=== PATIENT | female | born 1950 | race Caucasian/White ===

== ENCOUNTER → 2016-12-01 | Outpatient (CLI) | payer BC ==
[~2016-12-01] MED LIST: AMOX500C3 PO; CLOTLOT2 TOP; DOCU100C; FOLI1TAB7 PO; LEVO150T22 PO; LEVO150T9 PO; METH2.5T PO; NAPR1TAB9 PO; PRD/1 PO; SENNTAB23 PO; SIMV20TA2 PO
--- NOTE | 2016-12-01 10:11 | DIAGNOSTIC IMAGING REPORT ---
ULTRASOUND RIGHT UPPER EXTREMITY VENOUS CLINICAL HISTORY: Right arm pain and swelling. COMPARISON STUDY: No priors. TECHNIQUE: Real-time, grayscale, and color Doppler sonography of the deep veins of the right upper extremity is performed. Compression and augmentation were utilized. FINDINGS: There is no sonographic evidence of deep venous thrombosis identified in the right upper extremity. The right internal jugular, axillary, and brachial veins are patent and normally compressible. Normal venous waveforms and augmentation are seen within the right subclavian vein. The cephalic and basilic veins are clear. The visualized radial and ulnar veins are patent. IMPRESSION: There is no sonographic evidence of deep venous thrombosis identified in the right upper extremity. Electronically signed by: Shabbir Ribeiro M.D. 12/01/2016 10:10 AM Dictated Date/Time: 12/01/2016 10:09 AM
== END | disposition home or self-care (01) ==
LOC: C.ULTR 09:39
PROVIDERS: ATTEND Internal Medicine
DX: M79.601 Pain in right arm (principal)

== ENCOUNTER → 2017-01-23 | Outpatient (CLI) | payer BC ==
[2017-01-23 12:34] LABS: BASO % 0.4 %; BASO ABS # 0.05 K/uL (0-0.2); COMPLETE YES; EOS % 1.2 %; HEMATOCRIT 43.3 % (37-47); IG% 1.3 %; LYMPH % 32.6 %; LYMPH ABS # 3.77 K/uL (1.2-3.4); MEAN CELL VOLUME 91.2 fL (80-100); MEAN CORPUSCULAR HEMOGLOBIN 29.9 pg (25-34); MEAN CORPUSCULAR HGB CONC 32.8 g/dl (32-36); MEAN PLATELET VOLUME 10.4 fL (7.4-10.4); MONO % 8.7 %; NEUT % 55.8 %; PLATELET COUNT 314 K/uL (130-400); RED BLOOD COUNT 4.75 M/uL (4.2-5.4); WHITE BLOOD COUNT 11.56 K/uL (4.8-10.8)
[2017-01-23 13:04] LABS: CALCIUM 9.3 mg/dl (8.5-10.1)
[2017-01-23 13:09] LABS: ALT/SGPT 22 U/L (12-78); AST/SGOT 12 U/L (15-37); BLOOD UREA NITROGEN 21 mg/dl (7-18); BUN/CREATININE RATIO 27.2 (10-20); CARBON DIOXIDE 24 mmol/L (21-32); CHLORIDE 103 mmol/L (98-107); CHOLESTEROL 135 mg/dl (0-200); CREATININE 0.76 mg/dl (0.60-1.20); GLUCOSE 108 mg/dl (70-99); POTASSIUM 3.9 mmol/L (3.5-5.1); SODIUM 137 mmol/L (136-145); TRIGLYCERIDES 94 mg/dl (0-150); VERY LOW DENSITY LIPOPROT CALC 19 mg/dl
[2017-01-23 13:17] LABS: ALB/GLOB RATIO 1.2 (0.9-2); ALKALINE PHOSPHATASE 61 U/L (45-117); CHOLESTEROL/HDL RATIO 2.1; HDL CHOLESTEROL 64 mg/dl; THYROID STIMULATING HORMONE 0.253 uIu/ml (0.300-4.500)
== END | disposition home or self-care (01) ==
LOC: C.LABSPEC 12:08
PROVIDERS: ATTEND Internal Medicine
DX: E78.5 Hyperlipidemia, unspecified (principal); Z85.3 Personal history of malignant neoplasm of breast; E03.9 Hypothyroidism, unspecified

== ENCOUNTER → 2017-01-24 | Outpatient (CLI) | payer BC | END | disposition home or self-care (01) | LOC: C.LABSPEC 17:50 | PROVIDERS: ATTEND Internal Medicine | DX: Z12.11 Encounter for screening for malignant neoplasm of colon (principal) ==

== ENCOUNTER → 2017-01-27 | Outpatient (CLI) | payer BC ==
--- NOTE | 2017-01-27 08:27 | DIAGNOSTIC IMAGING REPORT ---
(BARIUM SWALLOW) ESOPHAGUS CLINICAL HISTORY: DYSPHAGIAcoughing while eating. Possible aspiration. COMPARISON STUDY: None FLUOROSCOPY TIME: 1.7 minutes. 25 fluoroscopic spot images were acquired.. FINDINGS: The patient swallowed effervescent granules and barium without difficulty. There is no evidence of aspiration. There is a small sliding hiatal hernia. There is esophageal dysmotility. There is a 4.3 cm smoothly marginated filling defect within the esophagus at the level of the jonna. The acute margins favor this being intrinsic to the esophagus. A polyp or submucosal mass is favored. Gastroenterology consultation is recommended in follow-up. IMPRESSION: 4.3 cm smoothly marginated filling defect within the esophagus at the level of the jonna. An intrinsic mass is favored over an extrinsic defect. A polyp or submucosal mass is favored. Gastroenterology consultation is recommended in follow-up. Electronically signed by: Crow Velasco M.D. 01/27/2017 8:38 AM Dictated Date/Time: 01/27/2017 8:21 AM
== END | disposition home or self-care (01) ==
LOC: C.RAD 07:51
PROVIDERS: ATTEND Internal Medicine
DX: R13.10 Dysphagia, unspecified (principal)

== ENCOUNTER → 2017-02-13 | Day surgery (SDC) | payer BC ==
[2017-01-30 08:26] VITALS: Ht 162.6 cm; Wt 84.1 kg
[~2017-02-13] VITALS: Ht 162.6 cm; Wt 84.1 kg
[~2017-02-13] MED LIST changes: -DOCU100C; -LEVO150T22 PO; +LIDOCAINE HCL 2% 2 ML VIAL (20MG/ML) ONE; -PRD/1 PO; +PROPOFOL IV EMULSION 10 MG/ML 20 ML VIAL IV ONE
--- NOTE | 2017-02-13 14:54 | Endo History and Physical ---
History & Physical Date of Service: February 13, 2017. Chief Complaint: mass seen on Barium swallow Referring Physician: Dr. Alejandra History of Present Illness For EGD Past Medical History Arthritis, Cancer, High Cholesterol, Thyroid Disease Past Surgical History Hx Cardiac Surgery: No Hx Internal Defibrillator: No Hx Pacemaker: No Hx Abdominal Surgery: Yes (GARRET BSO) Hx of Implantable Prosthesis: No Hx Post-Op Nausea and Vomiting: No Hx Cancer Surgery: Yes (RT BREAST LUMPECTOMY X2 WITH LYMPH NODES DISSECTION) Hx Thoracic Surgery: No Hx Orthopedic: Yes (CYST REMOVAL FROM LEFT INDEX FINGER (MRSA), RT WRIST GANGLION CYST REMOVAL) Hx Urinary Tract Surgery: No Family History IBD Social History Smoking Status: Never Smoker Hx Substance Use: No Hx Alcohol Use: No Allergies Coded Allergies: Adhesives (Verified Allergy, Unknown, SKIN IRRITATION, 02/13/17) Metronidazole (Verified Adverse Reaction, Unknown, EXTREME METALLIC TASTE IN MOUTH, 01/30/17) Current Medications Reported Home Medications Medications Dose Route/Sig Max Daily Dose Days Date Category Dose Instructions Amoxil (Amoxicillin) 500 Mg Cap 4 Tabs PO UD PRN 01/30/17 Reported Clotrimazole/Betamethason (Clotrimazole W/ Betamethasone) 1 Lot Lot 1 Dose TOP UD PRN 01/30/17 Reported Aleve (Naproxen) 220 Mg Tab 220 Mg PO DAILY PRN 01/30/17 Reported Levothyroxine Sodium 150 Mcg Tab 1 Tab PO QAM 01/30/17 Reported Methotrexate 2.5 Mg Tab 6 Tabs PO WK 09/16/16 Reported THURSDAY Folvite (Folic Acid) 1 Mg Tab 1 Tab PO QAM 09/16/16 Reported Zocor (Simvastatin) 20 Mg Tab 20 Mg PO HS 08/01/10 Reported Vital Signs Weight (Kilograms): 84.09 Height (Feet): 5 Height (Inches): 4 Date Time Temp Pulse Resp B/P Pulse Ox O2 Delivery O2 Flow Rate FiO2 02/13/17 14:26 36.9 74 20 199/78 98 Room Air 182/98 Physical Exam General Appearance: WD/WN Respiratory/Chest: Respiratory effort: no dyspnea Cardiovascular: Heart Auscultation: RRR Abdomen: Inspection & Palpation: soft Assessment and Plan Abnl xray for EGD
--- NOTE | 2017-02-13 15:51 | Discharge Instructions ---
Endoscopy Patient Instructions Date / Procedure(s) Performed February 13, 2017. EGD Allergy Information Coded Allergies: Adhesives (Verified Allergy, Unknown, SKIN IRRITATION, 02/13/17) Metronidazole (Verified Adverse Reaction, Unknown, EXTREME METALLIC TASTE IN MOUTH, 01/30/17) Discharge Date / Findings February 13, 2017. Esophageal mass, esophagitis, hiatal hernia Medication Instructions Restart Stopped Medication(s): resume meds Reported Home Medications Medications Dose Route/Sig Max Daily Dose Days Date Category Dose Instructions Amoxil (Amoxicillin) 500 Mg Cap 4 Tabs PO UD PRN 01/30/17 Reported Clotrimazole/Betamethason (Clotrimazole W/ Betamethasone) 1 Lot Lot 1 Dose TOP UD PRN 01/30/17 Reported Aleve (Naproxen) 220 Mg Tab 220 Mg PO DAILY PRN 01/30/17 Reported Levothyroxine Sodium 150 Mcg Tab 1 Tab PO QAM 01/30/17 Reported Methotrexate 2.5 Mg Tab 6 Tabs PO WK 09/16/16 Reported THURSDAY Folvite (Folic Acid) 1 Mg Tab 1 Tab PO QAM 09/16/16 Reported Zocor (Simvastatin) 20 Mg Tab 20 Mg PO HS 08/01/10 Reported Provider Instructions Activity Restrictions - No exercising or heavy lifting for 24 hours. - Do not drink alcohol the day of the procedure. - Do not drive a car or operate machinery until the day after the procedure. - Do not make any important decisions or sign important papers in 24 hours after the procedure. Following Day: - Return to full activity which may include returning to work/school. Diet Start your diet with liquids and light foods (jello, soup, juice, toast). Then eat your usual diet if not nauseated. Treatment For Common After Affects For mild abdominal pain, bloating, or excessive gas: - Rest - Eat lightly - Lie on right side Follow-Up Information Follow-up with Dr. Alejandra as scheduled Anesthesia Information What You Should Know You have had a procedure that required some medicine to reduce anxiety and discomfort. This treatment is called moderate sedation. After receiving the treatment, you may be sleepy, but you will be able to breathe on your own. The effects of the treatment may last for several hours. Follow these instructions along with Activity/Diet recommendations noted above: * Do NOT do anything where dizziness or clumsiness would be dangerous. * Rest quietly at home today, then you can be up and about tomorrow. * Have a responsible person stay with you the rest of today. * You may have had an I.V. today. If so, you may take the dressing off later today. Recommendations Call your doctor if: * Trouble breathing * Continuous vomiting for more than 24 hours * Temperature above 101 degrees * Severe abdominal pain or bloating * Pain not relieved by pain medicine ordered * There is increased drainage or redness from any incision * A large amount of rectal bleeding greater than 2-3 tablespoons. (If you had a polyp/s removed or have hemorrhoids, a small amount of blood - from the rectum is to be expected.) * You have any unanswered questions or concerns. IN THE EVENT OF A SERIOUS EMERGENCY, GO TO THE NEAREST EMERGENCY ROOM Your discharge instructions were prepared by provider Thomas So. Patient Instructions Signature Page Sincere Baron Patient (or Guardian) Signature/Date: I have read and understand the instructions given to me by my caregivers. Caregiver/RN/Doctor Signature/Date: The above-named patient and/or guardian has received patient instructions on this date. + Original Patient Signature Page (only) stays with chart. Please make copy for patient.
--- NOTE | 2017-02-13 15:57 | GI REPORT ---
Procedure Date: 02/13/2017 3:03 PM Procedure: Upper GI endoscopy Indications: Abnormal UGI series Medicines: Propofol total dose 270 mg IV, Lidocaine 40 mg IV Complications: No immediate complications. Estimated Blood Loss: Estimated blood loss: none. Procedure: Pre-Anesthesia Assessment: - Prior to the procedure, a History and Physical was performed, and patient medications, allergies and sensitivities were reviewed. The patient's tolerance of previous anesthesia was reviewed. - The risks and benefits of the procedure and the sedation options and risks were discussed with the patient. All questions were answered and informed consent was obtained. After obtaining informed consent, the endoscope was passed under direct vision. Throughout the procedure, the patient's blood pressure, pulse, and oxygen saturations were monitored continuously. The scope was introduced through the mouth, and advanced to the second part of duodenum. The upper GI endoscopy was accomplished without difficulty. The patient tolerated the procedure well. Findings: LA Grade B (one or more mucosal breaks greater than 5 mm, not extending between the tops of two mucosal folds) esophagitis was found. A small hiatus hernia was present. A large, submucosal mass with no bleeding and with no stigmata of recent bleeding was found in the middle third of the esophagus. The mass was partially obstructing and not circumferential. The entire examined stomach was normal. The examined duodenum was normal. Impression: - LA Grade B reflux esophagitis. - Small hiatus hernia. 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 - Normal stomach. - Normal examined duodenum. - No specimens collected. Recommendation: - Discharge patient to home (ambulatory). - Use Prilosec (omeprazole) 20 mg PO daily for 2 months. - Perform an upper endoscopic ultrasound (UEUS) at appointment to be scheduled. - Return to primary care physician SHAUNN. Thomas So M.D. Thomas So MD 02/13/2017 3:56:18 PM This report has been signed electronically. Note Initiated On: 02/13/2017 3:03 PM I attest to the content of the Intraoperative Record and orders documented therein, exceptions below
--- NOTE | 2017-02-13 16:13 | Anesthesiology Progress Note ---
Anesthesia Post Op Note Date & Time February 13, 2017 at 16:14 Vital Signs Pain Intensity: 0 Vital Signs Past 12 Hours Date Time Temp Pulse Resp B/P Pulse Ox O2 Delivery O2 Flow Rate FiO2 02/13/17 16:03 85 20 161/69 99 Room Air 02/13/17 14:26 36.9 74 20 199/78 98 Room Air 182/98 Notes Mental Status: alert / awake / arousable, participated in evaluation Pt Amnestic to Procedure: Yes Nausea / Vomiting: adequately controlled Pain: adequately controlled Airway Patency, RR, SpO2: stable & adequate BP & HR: stable & adequate Hydration State: stable & adequate Anesthetic Complications: no major complications apparent
[2017-02-13 16:31] VITALS: BP 172/80; PULSE 72; O2SAT 98
== END | disposition home or self-care (01) ==
LOC: C.GI 14:03
PROVIDERS: ATTEND Internal Medicine Gastroenterology
DX: K21.0 Gastro-esophageal reflux disease with esophagitis (principal); K44.9 Diaphragmatic hernia without obstruction or gangrene; K22.8 Other specified diseases of esophagus; E78.00 Pure hypercholesterolemia, unspecified; E07.9 Disorder of thyroid, unspecified; M19.90 Unspecified osteoarthritis, unspecified site; Z85.3 Personal history of malignant neoplasm of breast; Z83.79 Family history of other diseases of the digestive system; Z79.899 Other long term (current) drug therapy

== ENCOUNTER → 2017-02-19 | Outpatient (CLI) | payer BC ==
[~2017-02-19] MED LIST changes: -LIDOCAINE HCL 2% 2 ML VIAL (20MG/ML) ONE; +OPTIRAY 320 IV PRN; -PROPOFOL IV EMULSION 10 MG/ML 20 ML VIAL IV ONE
--- NOTE | 2017-02-19 08:51 | DIAGNOSTIC IMAGING REPORT ---
CHEST CT WITH CONTRAST CT DOSE: 477.01 mGycm HISTORY: MID ESOPHAGEAL TUMOR TECHNIQUE: Multiaxial CT images of the chest were performed following the intravenous administration of contrast. COMPARISON: Barium swallow 01/27/2017. FINDINGS: There is confirmation of 1.7 cm mass seen within the mid esophagus. This is just above the level of the jonna. There is no evidence for obstruction. No hilar lymphadenopathy. Distal paraesophageal lymph nodes are subcentimeter in size. There is a single prominent AP window lymph node measuring 2.0 x 0.8 cm. Normal caliber thoracic aorta. Tiny hiatus hernia. The heart is normal in size. The central pulmonary arteries are patent. No hepatic or splenic masses. No suspicious lytic or blastic osseous lesions. No pneumothorax. No pleural effusions. No suspicious pulmonary nodules. The lungs appear clear. IMPRESSION: 1. Confirmation of the 1.7 cm mass within the mid esophagus. Endoscopy is recommended for further evaluation. 2. A single mildly enlarged AP window lymph node measuring 2.0 x 0.8 cm. 3. Tiny hiatus hernia. Electronically signed by: Pratik Preciado M.D. 02/19/2017 8:50 AM Dictated Date/Time: 02/19/2017 8:36 AM
== END | disposition home or self-care (01) ==
LOC: C.CTS 07:30
PROVIDERS: ATTEND Internal Medicine Gastroenterology
DX: D37.8 Neoplasm of uncertain behavior of other specified digestive organs (principal)

== ENCOUNTER 2017-02-20 11:36 | Day surgery (SDC) | payer BC ==
[2017-02-18 15:08] VITALS: BMI 31.0
[~2017-02-20] VITALS: Ht 162.6 cm; Wt 81.8 kg
[~2017-02-20 11:36] MED LIST changes: +LACTATED RINGER'S 1000ML 1,000 ML IV SCH; -OPTIRAY 320 IV PRN
[2017-02-20 12:12] VITALS: BP 199/78; PULSE 79; TEMP 36.9; O2SAT 94; Ht 162.6 cm; Wt 81.8 kg
[2017-02-20] MEDS ORDERED: ATROPINE SULFATE 0.1 MG/ML 5ML SYR IV PRN (13:00)
[2017-02-20] MEDS ORDERED: FENTANYL CITRATE INJ 50 MCG/1 ML 2 ML VIAL IV PRN (13:00)
[2017-02-20] MEDS ORDERED: ONDANSETRON INJ 2 MG/ML 2 ML VIAL IV PRN (13:00)
[2017-02-20] MEDS ORDERED: SODIUM CHLORIDE 0.9% 500ML 500 ML IV ONE (13:21)
[2017-02-20] MEDS ORDERED: DEXAMETHASONE SOD INJ 4 MG/ML VIAL ONE ×2 (13:22→13:51)
[2017-02-20] MEDS ORDERED: ONDANSETRON INJ 2 MG/ML 2 ML VIAL ONE (13:22)
[2017-02-20] MEDS ORDERED: PROPOFOL IV EMULSION 10 MG/ML 20 ML VIAL IV ONE (13:22)
[2017-02-20] MEDS ORDERED: MIDAZOLAM HCL 1 MG/ML 2ML VIAL ONE (13:22)
[2017-02-20] MEDS ORDERED: LIDOCAINE HCL 2% 2 ML VIAL (20MG/ML) ONE (13:22)
[2017-02-20] MEDS ORDERED: ROCURONIUM BROMIDE 10 MG/ML 5 ML VIAL ONE (13:22)
[2017-02-20] MEDS ORDERED: FENTANYL CITRATE INJ 50 MCG/1 ML 2 ML VIAL ONE (13:23)
--- NOTE | 2017-02-20 13:24 | Endo History and Physical ---
History & Physical Date of Service: February 20, 2017. Chief Complaint: submucosal mass on EGD/BA swallow and CT scan Referring Physician: Past Medical History Arthritis, Cancer, High Cholesterol, Thyroid Disease Past Surgical History Hx Cardiac Surgery: No Hx Internal Defibrillator: No Hx Pacemaker: No Hx Abdominal Surgery: Yes (GARRET BSO) Hx Post-Op Nausea and Vomiting: No Hx Cancer Surgery: Yes (RT BREAST LUMPECTOMY X2 WITH LYMPH NODES DISSECTION) Hx Thoracic Surgery: No Hx Orthopedic: Yes (CYST REMOVAL FROM LEFT INDEX FINGER (MRSA), RT WRIST GANGLION CYST REMOVAL) Hx Urinary Tract Surgery: No Social History Smoking Status: Never Smoker Hx Substance Use: No Hx Alcohol Use: Yes (1 A WEEK) Allergies Coded Allergies: Adhesives (Verified Allergy, Unknown, SKIN IRRITATION, 02/20/17) Metronidazole (Verified Adverse Reaction, Unknown, EXTREME METALLIC TASTE IN MOUTH, 02/20/17) Current Medications Reported Home Medications Medications Dose Route/Sig Max Daily Dose Days Date Category Dose Instructions Stool Softener (Sennosides-Docusate Sodium) 1 Tab Tab 1 Tab PO PRN 02/18/17 Reported Amoxil (Amoxicillin) 500 Mg Cap 4 Tabs PO UD PRN 01/30/17 Reported Clotrimazole/Betamethason (Clotrimazole W/ Betamethasone) 1 Lot Lot 1 Dose TOP UD PRN 01/30/17 Reported Aleve (Naproxen) 220 Mg Tab 220 Mg PO DAILY PRN 01/30/17 Reported Levothyroxine Sodium 150 Mcg Tab 1 Tab PO QAM 01/30/17 Reported Methotrexate 2.5 Mg Tab 6 Tabs PO WK 09/16/16 Reported THURSDAY pm Folvite (Folic Acid) 1 Mg Tab 1 Tab PO QAM 09/16/16 Reported Zocor (Simvastatin) 20 Mg Tab 20 Mg PO HS 08/01/10 Reported Vital Signs Weight (Kilograms): 81.82 Height (Feet): 5 Height (Inches): 4 Date Time Temp Pulse Resp B/P Pulse Ox O2 Delivery O2 Flow Rate FiO2 02/20/17 12:12 36.9 79 20 199/78 94 Room Air Physical Exam AAO x3 Nl s1s2 Lungs CTA Abd soft NT/ND + BS - CCE Assessment and Plan EUS/possible FNA
[2017-02-20] MEDS ORDERED: LABETALOL HCL IV 5 MG/ML 20ML IV ONE (14:11)
[2017-02-20] MEDS ORDERED: CIPROFLOXACIN 400MG / 200ML D5W ONE (14:17)
[2017-02-20] MEDS ORDERED: NEOSTIGMINE METHYLSULFATE 5 MG/5 ML SYR ONE (15:35)
[2017-02-20] MEDS ORDERED: GLYCOPYRROLATE INJ 0.2 MG/ML VIAL ONE (15:35)
[2017-02-20] MEDS ORDERED: ESMOLOL HCL 10 MG/ML 10 ML VIAL ONE (15:35)
--- NOTE | 2017-02-20 16:01 | Discharge Instructions ---
Endoscopy Patient Instructions Date / Procedure(s) Performed February 20, 2017. Allergy Information Coded Allergies: Adhesives (Verified Allergy, Unknown, SKIN IRRITATION, 02/20/17) Metronidazole (Verified Adverse Reaction, Unknown, EXTREME METALLIC TASTE IN MOUTH, 02/20/17) Discharge Date / Findings February 20, 2017. Reported Home Medications Medications Dose Route/Sig Max Daily Dose Days Date Category Dose Instructions Stool Softener (Sennosides-Docusate Sodium) 1 Tab Tab 1 Tab PO PRN 02/18/17 Reported Amoxil (Amoxicillin) 500 Mg Cap 4 Tabs PO UD PRN 01/30/17 Reported Clotrimazole/Betamethason (Clotrimazole W/ Betamethasone) 1 Lot Lot 1 Dose TOP UD PRN 01/30/17 Reported Aleve (Naproxen) 220 Mg Tab 220 Mg PO DAILY PRN 01/30/17 Reported Levothyroxine Sodium 150 Mcg Tab 1 Tab PO QAM 01/30/17 Reported Methotrexate 2.5 Mg Tab 6 Tabs PO WK 09/16/16 Reported THURSDAY pm Folvite (Folic Acid) 1 Mg Tab 1 Tab PO QAM 09/16/16 Reported Zocor (Simvastatin) 20 Mg Tab 20 Mg PO HS 08/01/10 Reported esophgaeal lesion at 25-[address] at 28 cm sampled Medication Instructions Restart Stopped Medication(s): Reported Home Medications Medications Dose Route/Sig Max Daily Dose Days Date Category Dose Instructions Stool Softener (Sennosides-Docusate Sodium) 1 Tab Tab 1 Tab PO PRN 02/18/17 Reported Amoxil (Amoxicillin) 500 Mg Cap 4 Tabs PO UD PRN 01/30/17 Reported Clotrimazole/Betamethason (Clotrimazole W/ Betamethasone) 1 Lot Lot 1 Dose TOP UD PRN 01/30/17 Reported Aleve (Naproxen) 220 Mg Tab 220 Mg PO DAILY PRN 01/30/17 Reported Levothyroxine Sodium 150 Mcg Tab 1 Tab PO QAM 01/30/17 Reported Methotrexate 2.5 Mg Tab 6 Tabs PO WK 09/16/16 Reported THURSDAY pm Folvite (Folic Acid) 1 Mg Tab 1 Tab PO QAM 09/16/16 Reported Zocor (Simvastatin) 20 Mg Tab 20 Mg PO HS 08/01/10 Reported Reported Home Medications Medications Dose Route/Sig Max Daily Dose Days Date Category Dose Instructions Stool Softener (Sennosides-Docusate Sodium) 1 Tab Tab 1 Tab PO PRN 02/18/17 Reported Amoxil (Amoxicillin) 500 Mg Cap 4 Tabs PO UD PRN 01/30/17 Reported Clotrimazole/Betamethason (Clotrimazole W/ Betamethasone) 1 Lot Lot 1 Dose TOP UD PRN 01/30/17 Reported Aleve (Naproxen) 220 Mg Tab 220 Mg PO DAILY PRN 01/30/17 Reported Levothyroxine Sodium 150 Mcg Tab 1 Tab PO QAM 01/30/17 Reported Methotrexate 2.5 Mg Tab 6 Tabs PO WK 09/16/16 Reported THURSDAY pm Folvite (Folic Acid) 1 Mg Tab 1 Tab PO QAM 09/16/16 Reported Zocor (Simvastatin) 20 Mg Tab 20 Mg PO HS 08/01/10 Reported Reported Home Medications Medications Dose Route/Sig Max Daily Dose Days Date Category Dose Instructions Stool Softener (Sennosides-Docusate Sodium) 1 Tab Tab 1 Tab PO PRN 02/18/17 Reported Amoxil (Amoxicillin) 500 Mg Cap 4 Tabs PO UD PRN 01/30/17 Reported Clotrimazole/Betamethason (Clotrimazole W/ Betamethasone) 1 Lot Lot 1 Dose TOP UD PRN 01/30/17 Reported Aleve (Naproxen) 220 Mg Tab 220 Mg PO DAILY PRN 01/30/17 Reported Levothyroxine Sodium 150 Mcg Tab 1 Tab PO QAM 01/30/17 Reported Methotrexate 2.5 Mg Tab 6 Tabs PO WK 09/16/16 Reported THURSDAY pm Folvite (Folic Acid) 1 Mg Tab 1 Tab PO QAM 09/16/16 Reported Zocor (Simvastatin) 20 Mg Tab 20 Mg PO HS 08/01/10 Reported Cipro 500mg twice daily for 7 days until finished Provider Instructions Activity Restrictions - No exercising or heavy lifting for 24 hours. - Do not drink alcohol the day of the procedure. - Do not drive a car or operate machinery until the day after the procedure. - Do not make any important decisions or sign important papers in 24 hours after the procedure. Following Day: - Return to full activity which may include returning to work/school. Diet Start your diet with liquids and light foods (jello, soup, juice, toast). Then eat your usual diet if not nauseated. Treatment For Common After Affects For mild abdominal pain, bloating, or excessive gas: - Rest - Eat lightly - Lie on right side Follow-Up Information Follow-up with as scheduled Anesthesia Information What You Should Know You have had a procedure that required some medicine to reduce anxiety and discomfort. This treatment is called moderate sedation. After receiving the treatment, you may be sleepy, but you will be able to breathe on your own. The effects of the treatment may last for several hours. Follow these instructions along with Activity/Diet recommendations noted above: * Do NOT do anything where dizziness or clumsiness would be dangerous. * Rest quietly at home today, then you can be up and about tomorrow. * Have a responsible person stay with you the rest of today. * You may have had an I.V. today. If so, you may take the dressing off later today. Recommendations Call your doctor if: * Trouble breathing * Continuous vomiting for more than 24 hours * Temperature above 101 degrees * Severe abdominal pain or bloating * Pain not relieved by pain medicine ordered * There is increased drainage or redness from any incision * A large amount of rectal bleeding greater than 2-3 tablespoons. (If you had a polyp/s removed or have hemorrhoids, a small amount of blood - from the rectum is to be expected.) * You have any unanswered questions or concerns. IN THE EVENT OF A SERIOUS EMERGENCY, GO TO THE NEAREST EMERGENCY ROOM Your discharge instructions were prepared by provider Manav Gómez. Patient Instructions Signature Page Sincere Baron Patient (or Guardian) Signature/Date: I have read and understand the instructions given to me by my caregivers. Caregiver/RN/Doctor Signature/Date: The above-named patient and/or guardian has received patient instructions on this date. + Original Patient Signature Page (only) stays with chart. Please make copy for patient.
--- NOTE | 2017-02-20 16:28 | Anesthesiology Progress Note ---
Anesthesia Post Op Note Date & Time February 20, 2017 at 16:28 Vital Signs Pain Intensity: 0 Vital Signs Past 12 Hours Date Time Temp Pulse Resp B/P Pulse Ox O2 Delivery O2 Flow Rate FiO2 02/20/17 16:20 78 18 147/62 97 Room Air 02/20/17 16:10 81 18 142/71 98 Room Air 02/20/17 16:00 84 18 126/93 98 Mask 10 02/20/17 15:54 36.2 94 18 152/64 99 Mask 10 02/20/17 12:12 36.9 79 20 199/78 94 Room Air Notes Mental Status: alert / awake / arousable, participated in evaluation Pt Amnestic to Procedure: Yes Nausea / Vomiting: adequately controlled Pain: adequately controlled Airway Patency, RR, SpO2: stable & adequate BP & HR: stable & adequate Hydration State: stable & adequate Anesthetic Complications: no major complications apparent
[2017-02-20 16:30] VITALS: PULSE 72
[2017-02-20 16:40] VITALS: BP 143/64; TEMP 36.5; O2SAT 96
--- NOTE | 2017-02-20 16:47 | GI REPORT ---
Procedure Date: 02/20/2017 1:58 PM Procedure: Upper EUS Indications: Adenopathy seen on chest CT, Suspected mass in esophagus on chest CT, Abnormal esophagram/UGI series, Hx Breast CA ; lumpectomy/CTX/XRT Medicines: General Anesthesia, Cipro 400 mg IV Complications: No immediate complications. Estimated blood loss: Minimal. Estimated Blood Loss: Estimated blood loss was minimal. Estimated blood loss was minimal. Procedure: Pre-Anesthesia Assessment: - Prior to the procedure, a History and Physical was performed, and patient medications and allergies were reviewed. The patient's tolerance of previous anesthesia was also reviewed. The risks and benefits of the procedure and the sedation options and risks were discussed with the patient. All questions were answered, and informed consent was obtained. Prior Anticoagulants: The patient has taken no previous anticoagulant or antiplatelet agents. ASA Grade Assessment: II - A patient with mild systemic disease. After reviewing the risks and benefits, the patient was deemed in satisfactory condition to undergo the procedure. After obtaining informed consent, the endoscope was passed under direct vision. Throughout the procedure, the patient's blood pressure, pulse, and oxygen saturations were monitored continuously. The Endosonoscope was introduced through the mouth, and advanced to the second part of duodenum. The upper EUS was accomplished without difficulty. The patient tolerated the procedure well. Findings: Endoscopic Finding : The lower third of the esophagus, lower esophageal sphincter and gastroesophageal junction were normal. The entire examined stomach was normal. The examined duodenum was normal. Endosonographic Finding : The esophagus, stomach and duodenum and adjacent structures were visualized endosonographically. A round intramural (subepithelial) lesion was found in the upper third of the esophagus. It was encountered at 25 cm from the incisors and extended to 27 cm. The lesion was hypoechoic, hyperechoic and heterogenous. Sonographically, the origin appeared to be within the muscularis propria (Layer 4). The lesion also appeared to involve the following wall layer(s): submucosa (Layer 3). The endosonographic borders were well-defined. There was sonographic evidence suggesting parenchymal invasion into the submucosa (Layer 3) and the muscularis propria (Layer 4). Fine needle aspiration for cytology was performed. Color Doppler imaging was utilized prior to needle puncture to confirm a lack of significant vascular structures within the needle path. Four passes were made with the 25 gauge needle using a transesophageal approach. A stylet was used. Passes were also made with a 25 G procore needle. A arts manager was present to evaluate the adequacy of the specimen. The cellularity of the specimen was adequate. Final cytology results are pending. Endosonographic images of the stomach were unremarkable. No pathologic lymphadenopathy was identified. There was no sign of significant endosonographic abnormality in the examined duodenum. No pathologic lymphadenopathy was identified. There was no sign of significant endosonographic abnormality in the common bile duct and in the gallbladder. An unremarkable gallbladder and no pathologic lymphadenopathy were identified. There was no sign of significant endosonographic abnormality in the liver. Homogeneous parenchyma and no focal pathology were identified. There was no sign of significant endosonographic abnormality in the pancreatic head, in the pancreatic body and in the pancreatic tail. No pathologic lymphadenopathy, no masses. One benign-appearing lymph node was visualized in the aortopulmonary region (level 5) with the ultrasound probe located 28 cm from the incisors. It measured 6 mm by 18 mm in maximal cross-sectional diameter. The node was tubular, hypoechoic and heterogenous and had well defined margins. Fine needle aspiration for cytology was performed. Color Doppler imaging was utilized prior to needle puncture to confirm a lack of significant vascular structures within the needle path. Two passes were made with the 25 gauge needle using a transesophageal approach. A stylet was used. A arts manager was present to evaluate the adequacy of the specimen. The cellularity of the specimen was adequate. Final cytology results are pending. Impression: - Normal lower third of esophagus, lower esophageal sphincter and gastroesophageal junction. - Normal stomach. - Normal examined duodenum. - An intramural (subepithelial) lesion was found in the upper third of the esophagus. It appeared to originate from within the muscularis propria (Layer 4, however elements appear to arise from submucosal layer. The pattern is not consistent with a duplication cyst (pure anechoic features) Fine needle aspiration performed. No fluid was aspirated. Recommendation: - Patient has a contact number available for emergencies. The signs and symptoms of potential delayed complications were discussed with the patient. Return to normal activities tomorrow. Written discharge instructions were provided to the patient. - Advance diet as tolerated. - Await cytology results. - Return to referring physician as previously scheduled. MD Manav Perdomo MD 02/20/2017 4:46:43 PM This report has been signed electronically. Note Initiated On: 02/20/2017 1:58 PM I attest to the content of the Intraoperative Record and orders documented therein, exceptions below
[2017-02-20 17:10] VITALS: BP 162/72; TEMP 36.5; O2SAT 97
== END 2017-02-20 17:51 | disposition home or self-care (01) ==
LOC: C.ACU 11:36
PROVIDERS: ATTEND Internal Medicine Gastroenterology
DX: K22.9 Disease of esophagus, unspecified (principal); M19.90 Unspecified osteoarthritis, unspecified site; E78.00 Pure hypercholesterolemia, unspecified; Z86.14 Personal history of Methicillin resistant Staphylococcus aureus infection; E03.9 Hypothyroidism, unspecified; K44.9 Diaphragmatic hernia without obstruction or gangrene; E78.5 Hyperlipidemia, unspecified; M06.9 Rheumatoid arthritis, unspecified; Z85.3 Personal history of malignant neoplasm of breast; Z92.21 Personal history of antineoplastic chemotherapy; E66.9 Obesity, unspecified

== ENCOUNTER → 2017-06-24 | Outpatient (CLI) | payer BC ==
[~2017-06-24] MED LIST changes: -LACTATED RINGER'S 1000ML 1,000 ML IV SCH
--- NOTE | 2017-06-24 15:19 | MAMMOGRAPHY REPORT ---
BILATERAL DIGITAL SCREENING MAMMOGRAM TOMOSYNTHESIS WITH CAD: 06/24/2017 CLINICAL HISTORY: Asymptomatic. Personal history of breast cancer. TECHNIQUE: Breast tomosynthesis in addition to standard 2D mammography was performed. Current study was also evaluated with a Computer Aided Detection (CAD) system. COMPARISON: Comparison is made to exams dated: 06/19/2015 mammogram, 06/23/2016 mammogram, 06/15/2014 m ammogram, 06/09/2013 mammogram, 06/08/2012 mammogram, and 06/19/2011 mammogram - [facility] ter. BREAST COMPOSITION: The tissue of both breasts is heterogeneously dense, which may obscure small mas ses. FINDINGS: No suspicious masses, calcifications, or areas of architectural distortion are noted in ei ther breast. There has been no significant interval change compared to prior exams. There are stable post surgical changes in the right breast from prior lumpectomy. A small cluster of calcifications is seen within the right superior posterior breast on the MLO view only; the cluster is located withi n a fat density circumscribed mass which was best seen on the prior 2015 exam and is consistent with an oil cyst. Given the calcifications are seen within the oil cyst, they are benign and compatible w ith fat necrosis. Other scattered bilateral benign-appearing calcifications are stable. IMPRESSION: ACR BI-RADS CATEGORY 2: BENIGN There is no mammographic evidence of malignancy. A 1 year screening mammogram is recommended. The pa tient will receive written notification of the results. Approximately 10% of breast cancers are not detected with mammography. A negative mammographic report should not delay biopsy if a clinically suggestive mass is present. Darcy Solano M.D. /:06/24/2017 13:04:21 Miniature Set Designer: Zhen URIAS(Shayy)(M), [facility] letter sent: Normal 1/2 BI-RADS Code: ACR BI-RADS Category 2: Benign
== END | disposition home or self-care (01) ==
LOC: C.MAMM 08:11
PROVIDERS: ATTEND Internal Medicine Hematology
DX: Z12.31 Encounter for screening mammogram for malignant neoplasm of breast (principal); Z85.3 Personal history of malignant neoplasm of breast

== ENCOUNTER → 2017-07-27 | Outpatient (CLI) | payer BC ==
[2017-07-27 12:56] LABS: ESTIMATED AVERAGE GLUCOSE 111 mg/dl; HA1C FLAG Normal (Normal)
[2017-07-27 13:03] LABS: BLOOD UREA NITROGEN 11 mg/dl (7-18); BUN/CREATININE RATIO 15.4 (10-20); CALCIUM 9.1 mg/dl (8.5-10.1); CARBON DIOXIDE 24 mmol/L (21-32); CHLORIDE 102 mmol/L (98-107); CREATININE 0.69 mg/dl (0.60-1.20); GLUCOSE 105 mg/dl (70-99); POTASSIUM 3.8 mmol/L (3.5-5.1); SODIUM 135 mmol/L (136-145)
[2017-07-27 13:14] LABS: THYROID STIMULATING HORMONE 0.032 uIu/ml (0.300-4.500)
== END | disposition home or self-care (01) ==
LOC: C.LABSPEC 12:22
PROVIDERS: ATTEND Internal Medicine
DX: R60.9 Edema, unspecified (principal); R73.9 Hyperglycemia, unspecified; E03.9 Hypothyroidism, unspecified

== ENCOUNTER → 2017-09-29 | Outpatient (CLI) | payer BC ==
[~2017-09-29] MED LIST changes: -FOLI1TAB7 PO; +FOLI1TAB8 PO
[2017-09-29 15:51] LABS: THYROID STIMULATING HORMONE 1.33 uIu/ml (0.300-4.500)
== END | disposition home or self-care (01) ==
LOC: C.LABSPEC 14:45
PROVIDERS: ATTEND Internal Medicine
DX: E03.9 Hypothyroidism, unspecified (principal)

== ENCOUNTER 2017-11-28 09:57 | Inpatient (IN) | payer BC ==
[~2017-11-28] VITALS: Ht 157.5 cm; Wt 87.3 kg
[2017-11-28] MEDS ORDERED: OMEP40CA41 PO (10:17)
[2017-11-28] MEDS ORDERED: OMEP20TA PO (10:17)
[2017-11-28] MEDS ORDERED: DEXT1CAP PO (10:20)
[2017-11-28] MEDS ORDERED: SODIUM CHLORIDE 0.9% 1000ML 1,000 ML IV STA (10:25)
[2017-11-28] MEDS ORDERED: ONDANSETRON INJ 2 MG/ML 2 ML VIAL IV STA (10:25)
--- NOTE | 2017-11-28 10:35 | EMERGENCY ROOM VISIT NOTE ---
History Report prepared by Jesusita: Wesley Del Rio Under the Supervision of: Dr. Nathan Cedeno D.O. First contact with patient: 10:15 Chief Complaint: FLANK PAIN Stated Complaint: PAIN IN RIGHT SIDE OF MIDDLE BACK History of Present Illness The patient is a 67 year old female who presents to the Emergency Room with complaints of right flank pain that began last night. She rates her pain a 6/10 in severity. She has a past medical history of breast cancer and GERD. Yesterday , the patient went to see a movie at the theatre when she suddenly began to feel chilled. She then began to experience this flank pain that is exacerbated with movement. She denies any pain or swelling in her legs. She also denies any hematuria or pain/burning with urination. However, she noticed that her urine was an abnormal color and she already urinated twice this morning She states that she could not get warm last night when she was trying to sleep. She denies any history of cardiac disease, blood clots, or kidney stones. She notes she still has her gallbladder. She denies any chest pain, nausea, vomiting, or diarrhea. Source of History: patient Onset: last night Position: other (Right flank) Symptom Intensity: 6/10 Quality: sharp Timing: constant Modifying Factors (Worsening): movement Associated Symptoms: + chills, + urinary symptoms (Abnormal color and frequency), No chest pain, No nausea, No vomiting, No diarrhea Review of Systems See HPI for pertinent positives & negatives. A total of 10 systems reviewed and were otherwise negative. Past Medical & Surgical Medical Problems: (1) Breast cancer Family History Omitted secondary to the patient's age. Social History Smoking Status: Never Smoker Smokeless Tobacco Use: No Alcohol Use: occasionally Marital Status: Housing Status: lives with significant other Current/Historical Medications Scheduled Folic Acid (Folvite), 1 TAB PO QAM Levothyroxine Sodium (Levothyroxine Sodium), 1 TAB PO QAM Methotrexate (Methotrexate), 6 TABS PO WK Omeprazole (Omeprazole), 1 TAB PO Q2D Omeprazole (Prilosec), 1 CAP PO Q2D Sennosides-Docusate Sodium (Stool Softener), 1 TAB PO PRN Simvastatin (Zocor), 20 MG PO HS Scheduled PRN Amoxicillin (Amoxil), 4 TABS PO UD PRN for DENTAL PROCEDURES Clotrimazole W/ Betamethasone (Clotrimazole/Betamethason), 1 DOSE TOP UD PRN for RASH Fjuvteezkzzabzzv-Sllqvnhnxu-Xd (Nighttime Multi-Symptom C), 2 CAP PO HS PRN for COLD Naproxen (Aleve), 220 MG PO DAILY PRN for Pain Allergies Coded Allergies: Adhesives (Verified Allergy, Unknown, SKIN IRRITATION, 11/28/17) Metronidazole (Verified Adverse Reaction, Unknown, EXTREME METALLIC TASTE IN MOUTH, 11/28/17) Physical Exam Vital Signs Date Time Temp Pulse Resp B/P (MAP) Pulse Ox O2 Delivery O2 Flow Rate FiO2 11/28/17 14:40 81 16 133/45 95 Nasal Cannula 4.0 11/28/17 13:09 83 16 136/60 92 Nasal Cannula 4.0 11/28/17 12:11 87 11/28/17 12:05 95 Nasal Cannula 4.0 Mechanical Ventilator 11/28/17 12:05 84 16 170/69 85 Room Air 11/28/17 10:03 36.8 102 18 143/70 94 Room Air Physical Exam GENERAL: Patient is awake, alert, and in no acute distress. Patient is resting comfortably and showing no signs of anxiety EYES: The conjunctivae are clear. The pupils are round and reactive. EARS, NOSE, MOUTH AND THROAT: The nose is without any evidence of any deformity. Mucous membranes are dry tongue is midline NECK: The neck is nontender and supple. RESPIRATORY: Normal respiratory effort is noted there is no evidence of wheezing rhonchi or rales CARDIOVASCULAR: Regular rate and rhythm noted there no murmurs rubs or gallops normal S1 normal S2 GASTROINTESTINAL: The abdomen is mildly distended, but soft. Bowel sounds are present in all quadrants. Abdomen is nontender. No guarding or rigidity. BACK: No midline tenderness or or step-off noted range of motion in flexion extension as well as rotation no signs of muscle spasm noted. There is right CVA tenderness to percussion. MUSCULOSKELETAL/EXTREMITIES: There is no evidence of gross deformity full range of motion is noted in the hips and shoulders SKIN: There is no obvious evidence of any rash. There are no petechiae, pallor or cyanosis noted. NEUROLOGIC: Patient is awake alert and oriented x3. Patellar tendon reflexes are 1+ bilaterally. Medical Decision & Procedures ER Provider Diagnostic Interpretation: Radiology results as stated below per my review and radiologist interpretation: CHEST ONE VIEW PORTABLE CLINICAL HISTORY: ABDOMINAL PAIN/GI COMPARISON STUDY: Chest CT February 19, 2017. FINDINGS: Note is made of a 6.2 cm right midlung airspace opacity which has developed since CT of February 19, 2017. There may be minimal left midlung opacity. There is no pneumothorax or pleural effusion. No evidence for pulmonary edema. Cardiomediastinal silhouette is stable. IMPRESSION: Moderate right mid lung airspace opacity which suggests pneumonia. Radiographic follow-up to ensure resolution is recommended. Electronically signed by: Paul Sinha M.D. 11/28/2017 11:25 AM Dictated Date/Time: 11/28/2017 11:[address] OF THE ABDOMEN AND PELVIS WITHOUT CONTRAST CLINICAL HISTORY: Right flank pain. COMPARISON STUDY: PET/CT March 09, 2013. TECHNIQUE: Axial images of the abdomen and pelvis were obtained without IV contrast. Images were reviewed in the axial, sagittal, and coronal planes. A dose lowering technique was utilized adhering to the principles of ALARA. FINDINGS: Patient Services Manager tomogram demonstrates a 5.1 cm right midlung airspace opacity suggestive of pneumonia. Only the inferior most aspect of this airspace opacity is visualized on the axial images. There is fatty infiltration of the liver. Unenhanced images of the spleen, adrenal glands, kidneys and pancreas are unremarkable. No renal, ureteral or bladder calculi are identified. There is no hydronephrosis or hydroureter. There is extensive colonic diverticulosis without evidence for acute diverticulitis. The appendix is normal, located within the upper abdomen. There is no abdominal or pelvic lymphadenopathy. There are no suspicious osseous lesions. IMPRESSION: 1. Moderate right midlung airspace opacity shown on the finishing area operator tomogram which suggests pneumonia. Radiographic follow up to ensure resolution is recommended. 2. No urinary calculi or hydronephrosis. 3. Fatty liver. 4. Extensive colonic diverticulosis without evidence for acute diverticulitis. Electronically signed by: Pual Sinha M.D. 11/28/2017 11:22 AM Dictated Date/Time: 11/28/2017 11:[address] ANGIOGRAPHY OF THE CHEST, PULMONARY EMBOLUS PROTOCOL CLINICAL HISTORY: Pain with inspiration. Right flank pain. COMPARISON STUDY: Chest CT February 19, 2017 and chest radiograph performed earlier today. TECHNIQUE: Following IV administration of 93 mL of Optiray-320, helical axial images of the chest were obtained utilizing the pulmonary embolus protocol. Maximal intensity projections and sagittal and coronal reformats were viewed on an independent 3D workstation. IV contrast was administered without complication. A dose lowering technique was utilized adhering to the principles of ALARA. CT DOSE: 385.26 mGy.cm FINDINGS: Several prominent mediastinal lymph nodes are unchanged since CT of February 19, 2017. A 2.4 x 1.9 cm mass-like abnormality within the mid esophagus is similar to exam of February 19, 2017. The heart is mildly enlarged. There is no pericardial effusion. No pulmonary emboli are identified. There is no pneumothorax. There is a trace right pleural effusion. There is dense consolidation within the posterior segment of the right upper lobe without cavitation. Central airways are patent. Bony thorax is unremarkable. There is fatty infiltration of the liver. IMPRESSION: 1. No pulmonary emboli identified. 2. Dense consolidation within the posterior segment of the right upper lobe consistent with pneumonia. No cavitation. Trace right pleural effusion. No central obstructing mass. Radiographic follow up to ensure resolution is recommended. 3. 2.4 x 1.9 cm mass-like abnormality within the mid esophagus which is similar to prior chest CT of February 19, 2017. This could be correlated with previous endoscopic results. Electronically signed by: Paul Sinha M.D. 11/28/2017 1:37 PM Dictated Date/Time: 11/28/2017 1:29 PM Laboratory Results Test 11/28/17 10:40 11/28/17 10:45 11/28/17 11:38 Prothrombin Time 10.8 SECONDS (9.0-12.0) Prothromb Time International Ratio 1.0 (0.9-1.1) Activated Partial Thromboplast Time 26.4 SECONDS (21.0-31.0) Partial Thromboplastin Ratio 1.0 Total Bilirubin 1.4 mg/dl (0.2-1) Direct Bilirubin 0.3 mg/dl (0-0.2) Aspartate Amino Transf (AST/SGOT) 15 U/L (15-37) Alanine Aminotransferase (ALT/SGPT) 22 U/L (12-78) Alkaline Phosphatase 83 U/L (45-117) Troponin I < 0.015 ng/ml (0-0.045) Total Protein 8.4 gm/dl (6.4-8.2) Albumin 4.1 gm/dl (3.4-5.0) Lipase 80 U/L (73-393) Urine Color DK YELLOW Urine Appearance CLEAR (CLEAR) Urine pH 7.5 (4.5-7.5) Urine Specific [place] 1.021 (1.000-1.030) Urine Protein NEG (NEG) Urine Glucose (UA) NEG (NEG) Urine Ketones NEG (NEG) Urine Occult Blood NEG (NEG) Urine Nitrite NEG (NEG) Urine Bilirubin NEG (NEG) Urine Urobilinogen NEG (NEG) Urine Leukocyte Esterase SMALL (NEG) Urine WBC (Auto) 10-30 /hpf (0-5) Urine RBC (Auto) 0-4 /hpf (0-4) Urine Hyaline Casts (Auto) 1-5 /lpf (0-5) Urine Epithelial Cells (Auto) >30 /lpf (0-5) Urine Bacteria (Auto) NEG (NEG) Venous Blood pH 7.41 (7.36-7.41) Venous Blood Partial Pressure CO2 48 mmHg (38.0-50.0) Venous Blood Partial Pressure O2 21 mmHg Venous Blood HCO3 30 mmol/L Venous Blood Oxygen Saturation < 60.0 % Venous Blood Base Excess 4.5 mEq/L Lactic Acid Level 1.5 mmol/L (0.4-2.0) Laboratory results per my review. Medications Administered Medications (Trade) Dose Ordered Sig/[place] Route Start Time Stop Time Status Last Admin Dose Admin Sodium Chloride 1,000 ml @ 999 mls/hr Q1H1M STAT IV 11/28/17 10:25 11/28/17 11:25 DC 11/28/17 10:52 999 MLS/HR Ondansetron HCl (Zofran Inj) 4 mg NOW STAT IV 11/28/17 10:25 11/28/17 10:27 DC 11/28/17 10:51 4 MG Morphine Sulfate (MoRPHine SULFATE INJ) 4 mg Q15M PRN IV 11/28/17 10:30 11/28/17 17:23 DC 11/28/17 13:21 4 MG Ceftriaxone Sodium (Rocephin Inj) 1 gm NOW STAT IV 11/28/17 11:31 11/28/17 11:33 DC 11/28/17 12:13 1 GM ECG Per My Interpretation Indication: tachycardia Rate (beats per minute): 83 Rhythm: normal sinus Findings: other (No acute ST segments, no PVC) ED Course 1015: The patient was evaluated in room B8. A complete history and physical examination were performed. 1025: Ordered Zofran Inj 4 mg IV, NSS 1,000 ml @ 999 mls/hr IV 1030: Ordered Morphine Sulfate 4 mg IV 1131: Ordered Rocephin Inj 1 gm IV 1344: Upon reevaluation, the patient is resting. I discussed results and treatment plan with her. She verbalizes agreement and understanding. I spoke with Dr. Huerta of the [facility]. The patient will be evaluated for further management and care. Medical Decision Differential diagnosis: Etiologies such as renal colic, appendicitis, diverticulitis, mesenteric ischemia, aortic pathology, infections, inflammatory bowel disease, PUD, biliary pathology, UTI, as well as others were entertained. Nursing notes reviewed. The patient is a 67-year-old female who presented to the emergency department for an evaluation of back pain. The patient states that she had chills and also some urinary symptoms. Initially I thought her condition was consistent with a urinary infection or possibly kidney stone. The patient's urine was not overwhelmingly consistent with infection. Her chest x-ray showed an area of possible consolidation. The patient was treated with IV fluids and IV antibiotics. I discussed patient's laboratory and radiographic studies with her. A CT of the chest was also obtained to ensure this was not a pulmonary embolism or pulmonary infarct. Because of the patient's symptoms and elevated white blood cell count I discussed her case with the on-call [place] hospitalist group. They have agreed to evaluate the patient in the emergency department for further management and disposition. Medication Reconcilliation Current Medication List: was personally reviewed by me Blood Pressure Screening Patient's blood pressure: Elevated blood pressure Referred to the hospitalist Consults Time Called: 1340 Consulting Physician: Dr. Huerta - [facility] Returned Call: [phone] I discussed the patient's case with her. The patient will be evaluated for further management. Impression Primary Impression: PNA (pneumonia) Additional Impression: Hypoxia Scribe Attestation The scribe's documentation has been prepared under my direction and personally reviewed by me in its entirety. I confirm that the note above accurately reflects all work, treatment, procedures, and medical decision making performed by me. Departure Information Dispostion Being Evaluated By Hospitalist Referrals Grabiel Davidson M.D. (PCP) Patient Instructions [facility] Problem Qualifiers Primary Impression: PNA (pneumonia) Pneumonia type: due to unspecified organism Laterality: right Lung location : unspecified part of lung Qualified Codes: J18.9 - Pneumonia, unspecified organism
[2017-11-28] MEDS: MoRPHine SULFATE 4 MG/ML 1 ML CARP\\VIAL IV PRN ×2 (10:52→13:21)
[2017-11-28 11:06] LABS: BASO % 0.2 %; BASO ABS # 0.04 K/uL (0-0.2); EOS % 0.1 %; EOS ABS # 0.03 K/uL (0-0.5); HEMATOCRIT 46.8 % (37-47); HEMOGLOBIN 15.6 g/dL (12.0-16.0); IG# 0.12 K/uL (0.00-0.02); LYMPH % 8.3 %; LYMPH ABS # 1.82 K/uL (1.2-3.4); MEAN CELL VOLUME 89.7 fL (80-100); MEAN CORPUSCULAR HEMOGLOBIN 29.9 pg (25-34); MEAN CORPUSCULAR HGB CONC 33.3 g/dl (32-36); MEAN PLATELET VOLUME 9.4 fL (7.4-10.4); MONO % 10.9 %; MONO ABS # 2.38 K/uL (0.11-0.59); NEUT ABS # 17.53 K/uL (1.4-6.5); PLATELET COUNT 237 K/uL (130-400); RED CELL DISTRIBUTION WIDTH CV 15.6 % (11.5-14.5); RED CELL DISTRIBUTION WIDTH SD 50.8 fL (36.4-46.3); WHITE BLOOD COUNT 21.92 K/uL (4.8-10.8)
[2017-11-28 11:14] LABS: PTT PATIENT 26.4 SECONDS (21.0-31.0)
--- NOTE | 2017-11-28 11:23 | DIAGNOSTIC IMAGING REPORT ---
CT OF THE ABDOMEN AND PELVIS WITHOUT CONTRAST CLINICAL HISTORY: Right flank pain. COMPARISON STUDY: PET/CT March 09, 2013. TECHNIQUE: Axial images of the abdomen and pelvis were obtained without IV contrast. Images were reviewed in the axial, sagittal, and coronal planes. A dose lowering technique was utilized adhering to the principles of ALARA. FINDINGS: Surveillance Investigator tomogram demonstrates a 5.1 cm right midlung airspace opacity suggestive of pneumonia. Only the inferior most aspect of this airspace opacity is visualized on the axial images. There is fatty infiltration of the liver. Unenhanced images of the spleen, adrenal glands, kidneys and pancreas are unremarkable. No renal, ureteral or bladder calculi are identified. There is no hydronephrosis or hydroureter. There is extensive colonic diverticulosis without evidence for acute diverticulitis. The appendix is normal, located within the upper abdomen. There is no abdominal or pelvic lymphadenopathy. There are no suspicious osseous lesions. IMPRESSION: 1. Moderate right midlung airspace opacity shown on the regulatory compliance officer tomogram which suggests pneumonia. Radiographic follow up to ensure resolution is recommended. 2. No urinary calculi or hydronephrosis. 3. Fatty liver. 4. Extensive colonic diverticulosis without evidence for acute diverticulitis. Electronically signed by: Paul Sinha M.D. 11/28/2017 11:22 AM Dictated Date/Time: 11/28/2017 11:13 AM
--- NOTE | 2017-11-28 11:26 | DIAGNOSTIC IMAGING REPORT ---
CHEST ONE VIEW PORTABLE CLINICAL HISTORY: ABDOMINAL PAIN/GI COMPARISON STUDY: Chest CT February 19, 2017. FINDINGS: Note is made of a 6.2 cm right midlung airspace opacity which has developed since CT of February 19, 2017. There may be minimal left midlung opacity. There is no pneumothorax or pleural effusion. No evidence for pulmonary edema. Cardiomediastinal silhouette is stable. IMPRESSION: Moderate right mid lung airspace opacity which suggests pneumonia. Radiographic follow-up to ensure resolution is recommended. Electronically signed by: Paul Sinha M.D. 11/28/2017 11:25 AM Dictated Date/Time: 11/28/2017 11:22 AM
[2017-11-28] MEDS ORDERED: CEFTRIAXONE SOD INJ 1 GM ADDVIAL IV STA (11:31)
[2017-11-28 11:36] LABS: ALBUMIN 4.1 gm/dl (3.4-5.0); ALT/SGPT 22 U/L (12-78); AST/SGOT 15 U/L (15-37); BLOOD UREA NITROGEN 17 mg/dl (7-18); CALCIUM 9.7 mg/dl (8.5-10.1); CARBON DIOXIDE 27 mmol/L (21-32); CREATININE 0.98 mg/dl (0.60-1.20); GLUCOSE 111 mg/dl (70-99); LIPASE 80 U/L (73-393); POTASSIUM 3.7 mmol/L (3.5-5.1); SODIUM 132 mmol/L (136-145)
[2017-11-28 11:38] LABS: ALKALINE PHOSPHATASE 83 U/L (45-117); TOTAL PROTEIN 8.4 gm/dl (6.4-8.2)
[2017-11-28] MEDS ORDERED: OPTIRAY 320 IV PRN (12:30)
--- NOTE | 2017-11-28 13:39 | DIAGNOSTIC IMAGING REPORT ---
CT ANGIOGRAPHY OF THE CHEST, PULMONARY EMBOLUS PROTOCOL CLINICAL HISTORY: Pain with inspiration. Right flank pain. COMPARISON STUDY: Chest CT February 19, 2017 and chest radiograph performed earlier today. TECHNIQUE: Following IV administration of 93 mL of Optiray-320, helical axial images of the chest were obtained utilizing the pulmonary embolus protocol. Maximal intensity projections and sagittal and coronal reformats were viewed on an independent 3D workstation. IV contrast was administered without complication. A dose lowering technique was utilized adhering to the principles of ALARA. CT DOSE: 385.26 mGy.cm FINDINGS: Several prominent mediastinal lymph nodes are unchanged since CT of February 19, 2017. A 2.4 x 1.9 cm mass-like abnormality within the mid esophagus is similar to exam of February 19, 2017. The heart is mildly enlarged. There is no pericardial effusion. No pulmonary emboli are identified. There is no pneumothorax. There is a trace right pleural effusion. There is dense consolidation within the posterior segment of the right upper lobe without cavitation. Central airways are patent. Bony thorax is unremarkable. There is fatty infiltration of the liver. IMPRESSION: 1. No pulmonary emboli identified. 2. Dense consolidation within the posterior segment of the right upper lobe consistent with pneumonia. No cavitation. Trace right pleural effusion. No central obstructing mass. Radiographic follow up to ensure resolution is recommended. 3. 2.4 x 1.9 cm mass-like abnormality within the mid esophagus which is similar to prior chest CT of February 19, 2017. This could be correlated with previous endoscopic results. Electronically signed by: Paul Sinha M.D. 11/28/2017 1:37 PM Dictated Date/Time: 11/28/2017 1:29 PM
[2017-11-28] MEDS ORDERED: ONDANSETRON INJ 2 MG/ML 2 ML VIAL IV PRN (15:00)
[2017-11-28] MEDS ORDERED: ACETAMINOPHEN 325 MG TAB PO PRN (15:00)
[2017-11-28] MEDS ORDERED: MoRPHine SULFATE 4 MG/ML 1 ML CARP\\VIAL IV PRN (15:00)
[2017-11-28] MEDS ORDERED: OXYCODONE HCL IR 5 MG TAB (IMMEDIATE RELEASE) PO PRN (15:00)
[2017-11-28] MEDS ORDERED: TRAMADOL HCL 50 MG TAB PO PRN (15:00)
[2017-11-28] MEDS ORDERED: MoRPHine SULFATE 2 MG/ML CARP IV PRN (15:30)
[2017-11-28] MEDS ORDERED: NYSTATIN POWDER 15GM BTL EXT PRN (15:30)
[2017-11-28] MEDS ORDERED: KETOROLAC TROMETHAMINE 15 MG/ML VIAL IV. PRN (15:30)
--- NOTE | 2017-11-28 15:31 | History and Physical ---
History & Physical Date & Time of Service: Nov 28, 2017 at 15:01 Chief Complaint: Pain In Right Side Of Middle Back Primary Care Physician: Grabiel Davidson M.D. History of Present Illness Source: patient, family, hospital records Mrs Baron is a 67 year old female who presented to the ER with right flank pain , cough, shortness of breath and chills. This started yesterday with sudden onset fo chills after going to the movie theatre. with chills yesterday. She then started to have right flank pain last night, worse in inspiration and movement, severity 6/10. She previous had a problem with coughing after eating and is in Dr Dalia for this (has a benign lump in her esophagus, see biopsy in February 2017). She reports no problems with this in months and it is better with omeprazole. She has rheumatoid arthritis (under Dr Swan) and treated with methotrexate. She has a history of right sided breast cancer (under Dr Vitaliy Leslie) treated with partial mastectomy, chemo and radiation. She reports having a normal PET scan just in August for this. She also has a history of MRSA infection of her finger. She denies any chest pain, abdominal pain, body aches, nasal congestion, ear pain, sinus pain, nausea, vomiting or change in bowel habit. Past Medical/Surgical History Breast cancer (under Dr Vitaliy Leslie) - 8 year prior, treated with partial mastectomy, chemo and radiation Rheumatoid arthritis Hx MRSA infection of her finger Hypothyroidism Benign esophageal mass (under Dr Gómez) GERD Hyperlipidemia Social History Smoking Status: Never Smoker Smokeless Tobacco Use: No Marital Status: Immunizations History of Influenza Vaccine: Yes History of Tetanus Vaccine?: No History of Pneumococcal: No History of Hepatitis B Vaccine: No Multi-Drug Resistant Organisms History of MDRO: Yes Type of MDRO: MRSA (in finger) Allergies Coded Allergies: Adhesives (Verified Allergy, Unknown, SKIN IRRITATION, 11/28/17) Metronidazole (Verified Adverse Reaction, Unknown, EXTREME METALLIC TASTE IN MOUTH, 11/28/17) Home Medications Scheduled Folic Acid (Folvite), 1 TAB PO QAM Levothyroxine Sodium (Levothyroxine Sodium), 1 TAB PO QAM Methotrexate (Methotrexate), 6 TABS PO WK Omeprazole (Omeprazole), 1 TAB PO Q2D Omeprazole (Prilosec), 1 CAP PO Q2D Sennosides-Docusate Sodium (Stool Softener), 1 TAB PO PRN Simvastatin (Zocor), 20 MG PO HS Scheduled PRN Amoxicillin (Amoxil), 4 TABS PO UD PRN for DENTAL PROCEDURES Clotrimazole W/ Betamethasone (Clotrimazole/Betamethason), 1 DOSE TOP UD PRN for RASH Ivvkwajgozbbfthd-Jqnfqgmrih-Ym (Nighttime Multi-Symptom C), 2 CAP PO HS PRN for COLD Naproxen (Aleve), 220 MG PO DAILY PRN for Pain Review of Systems All systems reviewed and otherwise negative other than HPI Physical Exam Vital Signs Date Time Temp Pulse Resp B/P (MAP) Pulse Ox O2 Delivery O2 Flow Rate FiO2 11/28/17 14:40 81 16 133/45 95 Nasal Cannula 4.0 11/28/17 13:09 83 16 136/60 92 Nasal Cannula 4.0 11/28/17 12:11 87 11/28/17 12:05 95 Nasal Cannula 4.0 Mechanical Ventilator 11/28/17 12:05 84 16 170/69 85 Room Air 11/28/17 10:03 36.8 102 18 143/70 94 Room Air General Appearance: WD/WN, no apparent distress Head: normocephalic, atraumatic Eyes: normal inspection, PERRL, EOMI ENT: normal ENT inspection, hearing grossly normal, pharynx normal (moist mucus membranes) Respiratory/Chest: + crackles (bilateral bases, air entry reduced in right base ) Cardiovascular: regular rate, rhythm, no edema, no murmur, normal peripheral pulses Abdomen/GI: normal bowel sounds, non tender, soft Extremities/Musculoskelatal: no calf tenderness, normal capillary refill, no pedal edema Neurologic/Psych: parachute crown sewer II-XII nml as tested (no facial droop/numbness), no motor /sensory deficits (grossly normal), normal mood/affect, oriented x 3 Skin: normal color, warm/dry Diagnostics Laboratory Results Results Past 24 Hours Test 11/28/17 10:40 11/28/17 10:45 11/28/17 11:38 Range/Units White Blood Count 21.92 4.8-10.8 K/uL Red Blood Count 5.22 4.2-5.4 M/uL Hemoglobin 15.6 12.0-16.0 g/dL Hematocrit 46.8 37-47 % Mean Corpuscular Volume 89.7 80-100 fL Mean Corpuscular Hemoglobin 29.9 25-34 pg Mean Corpuscular Hemoglobin Concent 33.3 32-36 g/dl Platelet Count 237 130-400 K/uL Mean Platelet Volume 9.4 7.4-10.4 fL Neutrophils (%) (Auto) 80.0 % Lymphocytes (%) (Auto) 8.3 % Monocytes (%) (Auto) 10.9 % Eosinophils (%) (Auto) 0.1 % Basophils (%) (Auto) 0.2 % Neutrophils # (Auto) 17.53 1.4-6.5 K/uL Lymphocytes # (Auto) 1.82 1.2-3.4 K/uL Monocytes # (Auto) 2.38 0.11-0.59 K/uL Eosinophils # (Auto) 0.03 0-0.5 K/uL Basophils # (Auto) 0.04 0-0.2 K/uL RDW Standard Deviation 50.8 36.4-46.3 fL RDW Coefficient of Variation 15.6 11.5-14.5 % Immature Granulocyte % (Auto) 0.5 % Immature Granulocyte # (Auto) 0.12 0.00-0.02 K/uL Prothrombin Time 10.8 9.0-12.0 SECONDS Prothromb Time International Ratio 1.0 0.9-1.1 Activated Partial Thromboplast Time 26.4 21.0-31.0 SECONDS Partial Thromboplastin Ratio 1.0 Sodium Level 132 136-145 mmol/L Potassium Level 3.7 3.5-5.1 mmol/L Chloride Level 96 98-107 mmol/L Carbon Dioxide Level 27 21-32 mmol/L Anion Gap 8.0 3-11 mmol/L Blood Urea Nitrogen 17 7-18 mg/dl Creatinine 0.98 0.60-1.20 mg/dl Est Creatinine Clear Calc Drug Dose 58.2 ml/min Estimated GFR () 70.2 Estimated GFR (Non- 60.5 BUN/Creatinine Ratio 17.6 10-20 Random Glucose 111 70-99 mg/dl Calcium Level 9.7 8.5-10.1 mg/dl Total Bilirubin 1.4 0.2-1 mg/dl Direct Bilirubin 0.3 0-0.2 mg/dl Aspartate Amino Transf (AST/SGOT) 15 15-37 U/L Alanine Aminotransferase (ALT/SGPT) 22 12-78 U/L Alkaline Phosphatase 83 45-117 U/L Troponin I < 0.015 0-0.045 ng/ml Total Protein 8.4 6.4-8.2 gm/dl Albumin 4.1 3.4-5.0 gm/dl Lipase 80 73-393 U/L Urine Color DK YELLOW Urine Appearance CLEAR CLEAR Urine pH 7.5 4.5-7.5 Urine Specific [place] 1.021 1.000-1.030 Urine Protein NEG NEG Urine Glucose (UA) NEG NEG Urine Ketones NEG NEG Urine Occult Blood NEG NEG Urine Nitrite NEG NEG Urine Bilirubin NEG NEG Urine Urobilinogen NEG NEG Urine Leukocyte Esterase SMALL NEG Urine WBC (Auto) 10-30 0-5 /hpf Urine RBC (Auto) 0-4 0-4 /hpf Urine Hyaline Casts (Auto) 1-5 0-5 /lpf Urine Epithelial Cells (Auto) >30 0-5 /lpf Urine Bacteria (Auto) NEG NEG Venous Blood pH 7.41 7.36-7.41 Venous Blood Partial Pressure CO2 48 38.0-50.0 mmHg Venous Blood Partial Pressure O2 21 mmHg Venous Blood HCO3 30 mmol/L Venous Blood Oxygen Saturation < 60.0 % Venous Blood Base Excess 4.5 mEq/L Lactic Acid Level 1.5 0.4-2.0 mmol/L Microbiology Results 11/28/17 Blood Culture, Received Pending 11/28/17 Blood Culture, Received Pending 11/28/17 Urine Culture, Received Pending Diagnostic Radiology CHEST ONE VIEW PORTABLE CLINICAL HISTORY: ABDOMINAL PAIN/GI COMPARISON STUDY: Chest CT February 19, 2017. FINDINGS: Note is made of a 6.2 cm right midlung airspace opacity which has developed since CT of February 19, 2017. There may be minimal left midlung opacity. There is no pneumothorax or pleural effusion. No evidence for pulmonary edema. Cardiomediastinal silhouette is stable. IMPRESSION: Moderate right mid lung airspace opacity which suggests pneumonia. Radiographic follow-up to ensure resolution is recommended. Electronically signed by: Paul Sinha M.D. 11/28/2017 11:25 AM Dictated Date/Time: 11/28/2017 11:[address] ANGIOGRAPHY OF THE CHEST, PULMONARY EMBOLUS PROTOCOL CLINICAL HISTORY: Pain with inspiration. Right flank pain. COMPARISON STUDY: Chest CT February 19, 2017 and chest radiograph performed earlier today. TECHNIQUE: Following IV administration of 93 mL of Optiray-320, helical axial images of the chest were obtained utilizing the pulmonary embolus protocol. Maximal intensity projections and sagittal and coronal reformats were viewed on an independent 3D workstation. IV contrast was administered without complication. A dose lowering technique was utilized adhering to the principles of ALARA. CT DOSE: 385.26 mGy.cm FINDINGS: Several prominent mediastinal lymph nodes are unchanged since CT of February 19, 2017. A 2.4 x 1.9 cm mass-like abnormality within the mid esophagus is similar to exam of February 19, 2017. The heart is mildly enlarged. There is no pericardial effusion. No pulmonary emboli are identified. There is no pneumothorax. There is a trace right pleural effusion. There is dense consolidation within the posterior segment of the right upper lobe without cavitation. Central airways are patent. Bony thorax is unremarkable. There is fatty infiltration of the liver. IMPRESSION: 1. No pulmonary emboli identified. 2. Dense consolidation within the posterior segment of the right upper lobe consistent with pneumonia. No cavitation. Trace right pleural effusion. No central obstructing mass. Radiographic follow up to ensure resolution is recommended. 3. 2.4 x 1.9 cm mass-like abnormality within the mid esophagus which is similar to prior chest CT of February 19, 2017. This could be correlated with previous endoscopic results. Electronically signed by: Paul Sinha M.D. 11/28/2017 1:37 PM Dictated Date/Time: 11/28/2017 1:[address] OF THE ABDOMEN AND PELVIS WITHOUT CONTRAST CLINICAL HISTORY: Right flank pain. COMPARISON STUDY: PET/CT March 09, 2013. TECHNIQUE: Axial images of the abdomen and pelvis were obtained without IV contrast. Images were reviewed in the axial, sagittal, and coronal planes. A dose lowering technique was utilized adhering to the principles of ALARA. FINDINGS: Peanut Shaker tomogram demonstrates a 5.1 cm right midlung airspace opacity suggestive of pneumonia. Only the inferior most aspect of this airspace opacity is visualized on the axial images. There is fatty infiltration of the liver. Unenhanced images of the spleen, adrenal glands, kidneys and pancreas are unremarkable. No renal, ureteral or bladder calculi are identified. There is no hydronephrosis or hydroureter. There is extensive colonic diverticulosis without evidence for acute diverticulitis. The appendix is normal, located within the upper abdomen. There is no abdominal or pelvic lymphadenopathy. There are no suspicious osseous lesions. IMPRESSION: 1. Moderate right midlung airspace opacity shown on the program officer tomogram which suggests pneumonia. Radiographic follow up to ensure resolution is recommended. 2. No urinary calculi or hydronephrosis. 3. Fatty liver. 4. Extensive colonic diverticulosis without evidence for acute diverticulitis. Electronically signed by: Paul Sinha M.D. 11/28/2017 11:22 AM Dictated Date/Time: 11/28/2017 11:13 AM EKG Normal sinus rhythm 83 bpm QTc 430 ms Right axis deviation No ST, T wave ischemic abnormalities No change from prior EKG (20 Feb 2017) Impression Assessment and Plan 67 year old female immunosuppressed on methotrexate presents with right flank pain, cough and chills. Acute hypoxic respiratory failure - no home O2 - Aim O2 sats > 94% Right lower lobe pneumonia - possible but unlikely aspiration - blood and sputum cultures - influenza rapid pending - Unasyn + Azithromycin (ceftriaxone given in ER) - hydrate with NSS + 20 meq KCl 100 MLS/HR - repeat CBC, BMP in morning - Speech and language to assess for aspiration, can have normal diet as low risk - incentive spirometry and flutter valve - acetaminophen GINGER, toradol PRN, tramadol PRN, morphine PRN for pain - given Hx of right sided breast ca. will need to follow up with her oncologist (previous normal PET in Nov makes metastatic disease unlikely however) Change in color of urine - likely dehydration alone - urine culture pending Rheumatoid arhtirits - hold methotrexate this week (takes on Sat) due to concurrent infection Hyperlipidemia - continue simvastatin Hypothyroidism - cont levothyroxine GERD - switch omeprazole to pantoprazole Resident Physician Supervision Note: I interviewed and examined the patient. Discussed with Dr. Cordova and agree with findings and plan as documented in the note. Any exceptions or clarifications are listed here: None Documented By: Clement briceño no significant cough or sob immune compromised from RA and methotrexate vitals noted nad breathing unlabored no pallor or icterus, no accessory muscles CAP w hypoxia and sepsis (SIRS being WBC and HR) in the setting of immunocompromised host related to rheumatoid arthritis and methotrexate use -abx, O2, supportive care, pain control Level of Care Med/Surg Advanced Directives Existing Power of Hourly Associate: Yes () Resuscitation Status FULL RESUSCITATION VTE Prophylaxis VTE Risk Assessment Done? Y/N: Yes Risk Level: Moderate Given or contraindicated: Enoxaparin (Lovenox)SQ Additional Copies To Grabiel Davidson M.D. Resident Tracking Resident Involvement: Resident Care Provided Care Provided: Adult Hospital Medicine
[2017-11-28 15:57] LABS: INFLUENZA B ANTIGEN Neg for Influ B (NEG)
[2017-11-28 17:20] VITALS: BP 113/63; PULSE 77; TEMP 38; O2SAT 97; Ht 157.5 cm; Wt 87.3 kg
[2017-11-28] MEDS ORDERED: AZITHROMYCIN 250 MG TAB PO ONE (17:45)
[2017-11-28] MEDS ORDERED: LIDODERM (LIDOCAINE) PATCH 5% TD ONE (18:00)
[2017-11-28] MEDS: NSS + 20MEQ KCL 1000ML 1,000 ML IV SCH (18:04)
[2017-11-28] MEDS: AMPICILLIN/SULBACTAM SOD INJ 3,000 MG in SODIUM CHLORIDE 0.9% 100ML 100 ML IV SCH (18:48)
[2017-11-28] MEDS: GUAIFENESIN 600 MG TABCR PO SCH (20:35)
[2017-11-28] MEDS: ACETAMINOPHEN 325 MG TAB PO SCH (20:35)
[2017-11-28] MEDS: SIMVASTATIN 20 MG TAB PO SCH (20:35)
[2017-11-28] MEDS: ENOXAPARIN 40 MG/0.4 ML SYR SQ SCH (20:36)
[2017-11-28 21:45] VITALS: TEMP 36.7
[2017-11-28] MEDS ORDERED: PNEUMOCOCCAL POLYSACCHARIDES 25 MCG/0.5 ML VIAL/SYR IM. ONE (23:30)
[2017-11-28] MEDS ORDERED: PNEUMOCOCCAL ADMINISTRATION CHARGE ONE (23:30)
[2017-11-28 23:39] VITALS: BP 97/59; PULSE 73; TEMP 37; O2SAT 95
[2017-11-29] MEDS: AMPICILLIN/SULBACTAM SOD INJ 3,000 MG in SODIUM CHLORIDE 0.9% 100ML 100 ML IV SCH ×4 (00:52→18:25)
[2017-11-29] MEDS: NSS + 20MEQ KCL 1000ML 1,000 ML IV SCH (03:12)
[2017-11-29] MEDS: LEVOTHYROXINE 150 MCG TAB PO SCH (06:19)
[2017-11-29 06:31] LABS: BASO % 0.2 %; BASO ABS # 0.03 K/uL (0-0.2); EOS ABS # 0.15 K/uL (0-0.5); HEMATOCRIT 35.7 % (37-47); HEMOGLOBIN 11.7 g/dL (12.0-16.0); IG# 0.06 K/uL (0.00-0.02); LYMPH % 12.6 %; LYMPH ABS # 1.98 K/uL (1.2-3.4); MEAN CELL VOLUME 90.8 fL (80-100); MEAN CORPUSCULAR HEMOGLOBIN 29.8 pg (25-34); MEAN CORPUSCULAR HGB CONC 32.8 g/dl (32-36); MONO % 10.5 %; MONO ABS # 1.64 K/uL (0.11-0.59); NEUT % 75.3 %; NEUT ABS # 11.81 K/uL (1.4-6.5); PLATELET COUNT 167 K/uL (130-400); RED CELL DISTRIBUTION WIDTH CV 15.8 % (11.5-14.5); RED CELL DISTRIBUTION WIDTH SD 52.1 fL (36.4-46.3); WHITE BLOOD COUNT 15.67 K/uL (4.8-10.8)
[2017-11-29 06:53] LABS: CALCIUM 8.1 mg/dl (8.5-10.1); CREATININE 0.74 mg/dl (0.60-1.20); POTASSIUM 4.5 mmol/L (3.5-5.1)
[2017-11-29] MEDS ORDERED: SODIUM CHLORIDE 0.9% 1000ML 1,000 ML IV STA (07:01)
[2017-11-29] MEDS: PANTOprazole SOD 40 MG TAB PO SCH (07:30)
[2017-11-29] MEDS: LIDODERM (LIDOCAINE) PATCH 5% TD SCH (07:31)
[2017-11-29] MEDS: ACETAMINOPHEN 325 MG TAB PO SCH ×4 (07:31→20:39)
[2017-11-29] MEDS: GUAIFENESIN 600 MG TABCR PO SCH ×2 (07:32→20:39)
[2017-11-29 07:51] VITALS: BP 97/61; PULSE 64; TEMP 36.6; O2SAT 97
[2017-11-29] MEDS: AZITHROMYCIN 250 MG TAB PO SCH (08:54)
[2017-11-29 08:55] VITALS: BP 119/60; PULSE 67
--- NOTE | 2017-11-29 09:22 | Family Medicine Progress Note ---
Progress Note Date of Service Nov 29, 2017. Subjective Pt evaluation today including: conversation w/ patient, physical exam, chart review, lab review, review of studies, review of inpatient medication list Improving. Feels better today. Lidocaine patch working well for pain (only happening when she coughs). Not yet been out to chair. Managing to cough up sputum successfully. All Other Systems: Reviewed and Negative Medications Current Inpatient Medications Medications (Trade) Dose Ordered Sig/[place] Route Start Time Stop Time Status Last Admin Dose Admin Ioversol (Optiray 320) 100 ml UD PRN IV 11/28/17 12:30 12/02/17 12:29 Enoxaparin Sodium (Lovenox Inj) 40 mg HS SQ 11/28/17 21:00 12/28/17 20:59 11/28/17 20:36 40 MG Acetaminophen (Tylenol Tab) 650 mg Q4H PRN PO 11/28/17 15:00 12/28/17 14:59 Ondansetron HCl (Zofran Inj) 4 mg Q6H PRN IV 11/28/17 15:00 12/28/17 14:59 Folic Acid (Folvite Tab) 1 mg QAM PO 11/29/17 08:00 12/29/17 08:59 11/29/17 07:30 1 MG Levothyroxine Sodium (Synthroid Tab) 150 mcg DAILYBB PO 11/29/17 06:30 12/29/17 06:29 11/29/17 06:19 150 MCG Simvastatin (Zocor Tab) 20 mg HS PO 11/28/17 21:00 12/28/17 20:59 11/28/17 20:35 20 MG Miscellaneous Information (Order Awaiting Action) 1 ea QS N/A 11/29/17 00:00 12/29/17 00:00 Pantoprazole Sodium (Protonix Tab) 40 mg QAM PO 11/29/17 08:00 12/29/17 08:59 11/29/17 07:30 40 MG Azithromycin (Zithromax Tab) 250 mg QAM PO 11/29/17 08:00 12/03/17 08:59 11/29/17 08:54 250 MG Ampicillin Sodium/ Sulbactam Sodium 3000 mg/Sodium Chloride 108 ml @ 200 mls/hr Q6H IV 11/28/17 18:00 12/05/17 17:59 11/29/17 06:18 200 MLS/HR Tramadol HCl (Ultram Tab) 50 mg Q4H PRN PO 11/28/17 15:00 12/28/17 14:59 Morphine Sulfate (MoRPHine SULFATE INJ) 4 mg Q4H PRN IV 11/28/17 15:00 12/12/17 14:59 Potassium Chloride/Sodium Chloride 1,000 ml @ 100 mls/hr Q10H IV 11/28/17 17:30 12/28/17 17:29 11/29/17 03:12 100 MLS/HR Guaifenesin (Mucinex Contr Rel Tab) 1,200 mg Q12 PO 11/28/17 21:00 12/28/17 20:59 11/29/17 07:32 1,200 MG Nystatin (Mycostatin Powder) 1 appln QID PRN EXT 11/28/17 15:30 12/28/17 15:29 Acetaminophen (Tylenol Tab) 650 mg Q4HWA PO 11/28/17 20:00 12/28/17 19:59 11/29/17 07:31 650 MG Ketorolac Tromethamine (Toradol Inj) 15 mg Q6H PRN IV. 11/28/17 15:30 12/03/17 15:29 Morphine Sulfate (MoRPHine SULFATE INJ) 2 mg Q4H PRN IV 11/28/17 15:30 12/12/17 15:29 Lidocaine (Lidoderm Patch 5%) 1 patch QAM TD 11/29/17 08:00 12/29/17 08:59 11/29/17 07:31 1 PATCH Miscellaneous (Remove Lidoderm Patch) 1 ea DAILY@21 N/A 11/29/17 00:00 12/29/17 00:00 11/29/17 00:00 1 EA Objective Vital Signs Date Time Temp Pulse Resp B/P (MAP) Pulse Ox O2 Delivery O2 Flow Rate FiO2 11/29/17 08:55 67 119/60 (79) 11/29/17 07:51 36.6 64 17 97/61 (73) 97 Nasal Cannula 3.0 11/29/17 07:49 Nasal Cannula 3.0 11/29/17 00:30 Nasal Cannula 3.0 11/28/17 23:39 37.0 73 18 97/59 (72) 95 Nasal Cannula 3.0 11/28/17 21:45 36.7 11/28/17 17:20 38.0 77 16 113/63 (80) 97 Nasal Cannula 4.0 11/28/17 17:20 38.0 77 16 113/63 Nasal Cannula 4.0 11/28/17 17:10 82 16 132/47 96 11/28/17 16:56 82 16 132/47 96 Nasal Cannula 4.0 11/28/17 14:40 81 16 133/45 95 Nasal Cannula 4.0 11/28/17 13:09 83 16 136/60 92 Nasal Cannula 4.0 11/28/17 12:11 87 11/28/17 12:05 95 Nasal Cannula 4.0 Mechanical Ventilator 11/28/17 12:05 84 16 170/69 85 Room Air 11/28/17 10:03 36.8 102 18 143/70 94 Room Air Physical Exam General Appearance: no apparent distress Neck: trachea midline Respiratory/Chest: no respiratory distress, no accessory muscle use, + crackles (coarse crackles on back R (up to mid zone) > L) Cardiovascular: regular rate, rhythm, no edema, no JVD, no murmur Abdomen: normal bowel sounds, non tender, soft Extremities: no pedal edema, no calf tenderness, normal capillary refill Neurologic/Psychiatric: self storage manager II-XII nml as tested (no facial droop), no motor/ sensory deficits (grossly normal), alert, oriented x 3 Skin: normal color, warm/dry, no rash Laboratory Results 11/29/17 05:58 Red Blood Count 3.93, Mean Corpuscular Volume 90.8, Mean Corpuscular Hemoglobin 29.8, Mean Corpuscular Hemoglobin Concent 32.8, Mean Platelet Volume 9.0, Neutrophils (%) (Auto) 75.3, Lymphocytes (%) (Auto) 12.6, Monocytes (%) (Auto) 10.5, Eosinophils (%) (Auto) 1.0, Basophils (%) (Auto) 0.2, Neutrophils # (Auto ) 11.81, Lymphocytes # (Auto) 1.98, Monocytes # (Auto) 1.64, Eosinophils # (Auto ) 0.15, Basophils # (Auto) 0.03 11/29/17 05:58 Test 11/28/17 10:40 2/24/18 10:45 11/28/17 11:38 11/28/17 15:20 Prothrombin Time 10.8 SECONDS (9.0-12.0) Prothromb Time International Ratio 1.0 (0.9-1.1) Activated Partial Thromboplast Time 26.4 SECONDS (21.0-31.0) Partial Thromboplastin Ratio 1.0 Total Bilirubin 1.4 mg/dl (0.2-1) Direct Bilirubin 0.3 mg/dl (0-0.2) Aspartate Amino Transf (AST/SGOT) 15 U/L (15-37) Alanine Aminotransferase (ALT/SGPT) 22 U/L (12-78) Alkaline Phosphatase 83 U/L (45-117) Troponin I < 0.015 ng/ml (0-0.045) Total Protein 8.4 gm/dl (6.4-8.2) Albumin 4.1 gm/dl (3.4-5.0) Lipase 80 U/L (73-393) Urine Color DK YELLOW Urine Appearance CLEAR (CLEAR) Urine pH 7.5 (4.5-7.5) Urine Specific [place] 1.021 (1.000-1.030) Urine Protein NEG (NEG) Urine Glucose (UA) NEG (NEG) Urine Ketones NEG (NEG) Urine Occult Blood NEG (NEG) Urine Nitrite NEG (NEG) Urine Bilirubin NEG (NEG) Urine Urobilinogen NEG (NEG) Urine Leukocyte Esterase SMALL (NEG) Urine WBC (Auto) 10-30 /hpf (0-5) Urine RBC (Auto) 0-4 /hpf (0-4) Urine Hyaline Casts (Auto) 1-5 /lpf (0-5) Urine Epithelial Cells (Auto) >30 /lpf (0-5) Urine Bacteria (Auto) NEG (NEG) Venous Blood pH 7.41 (7.36-7.41) Venous Blood Partial Pressure CO2 48 mmHg (38.0-50.0) Venous Blood Partial Pressure O2 21 mmHg Venous Blood HCO3 30 mmol/L Venous Blood Oxygen Saturation < 60.0 % Venous Blood Base Excess 4.5 mEq/L Lactic Acid Level 1.5 mmol/L (0.4-2.0) Influenza Type A Antigen Neg for Influ A (NEG) Influenza Type B Antigen Neg for Influ B (NEG) Test 11/29/17 05:58 White Blood Count 15.67 K/uL (4.8-10.8) Red Blood Count 3.93 M/uL (4.2-5.4) Hemoglobin 11.7 g/dL (12.0-16.0) Hematocrit 35.7 % (37-47) Mean Corpuscular Volume 90.8 fL (80-100) Mean Corpuscular Hemoglobin 29.8 pg (25-34) Mean Corpuscular Hemoglobin Concent 32.8 g/dl (32-36) Platelet Count 167 K/uL (130-400) Mean Platelet Volume 9.0 fL (7.4-10.4) Neutrophils (%) (Auto) 75.3 % Lymphocytes (%) (Auto) 12.6 % Monocytes (%) (Auto) 10.5 % Eosinophils (%) (Auto) 1.0 % Basophils (%) (Auto) 0.2 % Neutrophils # (Auto) 11.81 K/uL (1.4-6.5) Lymphocytes # (Auto) 1.98 K/uL (1.2-3.4) Monocytes # (Auto) 1.64 K/uL (0.11-0.59) Eosinophils # (Auto) 0.15 K/uL (0-0.5) Basophils # (Auto) 0.03 K/uL (0-0.2) RDW Standard Deviation 52.1 fL (36.4-46.3) RDW Coefficient of Variation 15.8 % (11.5-14.5) Immature Granulocyte % (Auto) 0.4 % Immature Granulocyte # (Auto) 0.06 K/uL (0.00-0.02) Anion Gap 3.0 mmol/L (3-11) Est Creatinine Clear Calc Drug Dose 77.8 ml/min Estimated GFR () 98.5 Estimated GFR (Non- 85.0 BUN/Creatinine Ratio 16.5 (10-20) Calcium Level 8.1 mg/dl (8.5-10.1) Date/Time Source Procedure Growth Status 11/28/17 22:29 Nasal MRSA DNA Surveillance Screen - Final Specimen Negative for MRSA by DNA Probe Complete Assessment and Plan 67 year old female immunosuppressed on methotrexate presents with right flank pain, cough and chills. Acute hypoxic respiratory failure - no home O2 - Aim O2 sats > 94% Right lower lobe pneumonia - possible but unlikely aspiration - blood and sputum cultures pending. MRSA and influenza negative - Unasyn + Azithromycin (ceftriaxone given in ER) - bolus NSS this morning due to hypotension, continue after with NSS + 20 meq KCl 100 MLS/HR - Speech and language to assess for aspiration, can have normal diet as low risk - incentive spirometry and flutter valve - acetaminophen [place], toradol PRN, tramadol PRN, morphine PRN for pain - given Hx of right sided breast ca. will need to follow up with her oncologist (previous normal PET in Nov makes metastatic disease unlikely however) Rheumatoid arthritis - hold methotrexate this week (takes on Sat) due to concurrent infection Hyperlipidemia - continue simvastatin Hypothyroidism - cont levothyroxine GERD - switch omeprazole to pantoprazole (switch back on discharge) VTE Prophylaxis - Lovenox 40mg SQ daily Code - Full Disposition - Continued inpatient stay given burden of pneumonia on imaging, continued O2 requirement, need for IV antibiotics. PT/OT. Aim home tomorrow. Resident Physician Supervision Note: I interviewed and examined the patient. Discussed with Dr. Cordova and agree with findings and plan as documented in the note. Any exceptions or clarifications are listed here: None Documented By: Clement Isaacs pain no significant cough or sob immune compromised from RA and methotrexate vitals noted nad breathing unlabored no pallor or icterus, no accessory muscles CAP w hypoxia and sepsis (SIRS being WBC and HR) in the setting of immunocompromised host related to rheumatoid arthritis and methotrexate use -doing better -transition to PO abx -lidcaine patch helping well for pain control - can try to Rx at discharge if not covered then OTC is 4% -hopefully home tomorrow Resident Tracking Resident Involvement: Resident Care Provided Care Provided: Adult Hospital Medicine
[2017-11-29 11:49] VITALS: O2SAT 99
[2017-11-29 12:45] LABS: HEMATOCRIT 36.8 % (37-47); HEMOGLOBIN 11.9 g/dL (12.0-16.0)
[2017-11-29 15:53] VITALS: BP 145/76; PULSE 71; TEMP 36.8; O2SAT 95
[2017-11-29 16:02] VITALS: O2SAT 95
[2017-11-29] MEDS: SIMVASTATIN 20 MG TAB PO SCH (20:40)
[2017-11-29] MEDS: ENOXAPARIN 40 MG/0.4 ML SYR SQ SCH (20:40)
[2017-11-29 22:48] VITALS: BP 132/72; PULSE 62; TEMP 36.8; O2SAT 96
[2017-11-30] MEDS: LEVOTHYROXINE 150 MCG TAB PO SCH (06:24)
[2017-11-30 06:37] LABS: BASO % 0.2 %; BASO ABS # 0.02 K/uL (0-0.2); EOS % 2.1 %; EOS ABS # 0.22 K/uL (0-0.5); HEMATOCRIT 36.3 % (37-47); HEMOGLOBIN 11.9 g/dL (12.0-16.0); IG# 0.05 K/uL (0.00-0.02); LYMPH % 15.9 %; LYMPH ABS # 1.64 K/uL (1.2-3.4); MEAN CELL VOLUME 91.4 fL (80-100); MEAN CORPUSCULAR HGB CONC 32.8 g/dl (32-36); MEAN PLATELET VOLUME 9.6 fL (7.4-10.4); MONO % 7.5 %; MONO ABS # 0.77 K/uL (0.11-0.59); NEUT % 73.8 %; NEUT ABS # 7.61 K/uL (1.4-6.5); PLATELET COUNT 212 K/uL (130-400); RED CELL DISTRIBUTION WIDTH CV 15.1 % (11.5-14.5); RED CELL DISTRIBUTION WIDTH SD 50.6 fL (36.4-46.3); WHITE BLOOD COUNT 10.31 K/uL (4.8-10.8)
[2017-11-30 07:08] LABS: CALCIUM 8.6 mg/dl (8.5-10.1); CREATININE 0.73 mg/dl (0.60-1.20); POTASSIUM 4.3 mmol/L (3.5-5.1)
[2017-11-30 07:34] VITALS: BP 166/82; PULSE 75; TEMP 36.6; O2SAT 96
[2017-11-30] MEDS ORDERED: AMOXICILLIN/CLAVULANATE TAB 875 MG TAB PO SCH (08:00)
[2017-11-30] MEDS: PANTOprazole SOD 40 MG TAB PO SCH (09:10)
[2017-11-30] MEDS: ACETAMINOPHEN 325 MG TAB PO SCH ×2 (09:10→12:22)
[2017-11-30] MEDS: LIDODERM (LIDOCAINE) PATCH 5% TD SCH (09:11)
[2017-11-30] MEDS: AZITHROMYCIN 250 MG TAB PO SCH (09:11)
[2017-11-30] MEDS: GUAIFENESIN 600 MG TABCR PO SCH (09:11)
[2017-11-30] MEDS ORDERED: AMOX1TAB43 PO (13:00)
[2017-11-30] MEDS ORDERED: AZIT-57 PO (13:00)
--- NOTE | 2017-11-30 13:04 | Discharge Instructions ---
Discharge Instructions Date of Service Nov 30, 2017. Admission Reason for Admission: Hypoxia, Pna Discharge Discharge Diagnosis / Problem: Pneumonia Discharge Goals Goal(s): Decrease discomfort, Improve function Activity Recommendations Activity Limitations: resume your previous activity . Instructions / Follow-Up Instructions / Follow-Up You were admitted to [facility] due to pneumonia in your right lung. You were treated with IV antibiotics and we will be discharging you home on oral antibiotics. 1) Please take the Augmentin for 7 more days and the Azithromycin for 3 more days 2) Follow up with your primary care provider - an appointment has already been scheduled for you. You may need to have a repeat chest x-ray in 2-4 weeks to ensure resolution of the infection 3) Restart your methotrexate once you are finished with the antibiotics 4) Take your antibiotics with meals, and take probiotics whilst you are using the antibiotics. If your diarrhea worsens, and becomes watery, or has blood in it, please call your primary care doctor 5) If you experience fever, chills, difficulty breathing, chest pain, or have a worsening cough, please also call your primary care doctor. 6) Please follow up with your oncologist once your pneumonia has resolved for your regular check ups. Current Hospital Diet Patient's current hospital diet: Regular Diet Discharge Diet Recommended Diet: Regular Diet Pending Studies Studies pending at discharge: no Work Instructions Return To Work: 1 week Additional Instructions: You may return to work in 1 week's time (December 07, 2017). Medical Emergencies . Who to Call and When: Medical Emergencies: If at any time you feel your situation is an emergency, please call 911 immediately. . Non-Emergent Contact Non-Emergency issues call your: Primary Care Provider . . "Provider Documentation" section prepared by Adrian Beck. . VTE Core Measure Inpt VTE Proph given/why not?: Enoxaparin (Lovenox)SQ
--- NOTE | 2017-11-30 13:20 | Discharge Summary ---
Discharge Summary Date of Service Nov 30, 2017. Discharge Summary Admission Date: Nov 28, 2017 at 15:00 Discharge Date: Nov 30, 2017 Discharge Disposition: Home Principal Diagnosis: Pneumonia Problems/Secondary Diagnoses: 1) History of right breast cancer 2) Rheumatoid Arthritis 3) Hyperlipidemia 4) Hypothyroidism 5) GERD Immunizations: Have You Had Influenza Vaccine: Yes History of Tetanus Vaccine?: No History of Pneumococcal: No History of Hepatitis B Vaccine: No Procedures: CHEST ONE VIEW PORTABLE CLINICAL HISTORY: ABDOMINAL PAIN/GI COMPARISON STUDY: Chest CT February 19, 2017. FINDINGS: Note is made of a 6.2 cm right midlung airspace opacity which has developed since CT of February 19, 2017. There may be minimal left midlung opacity. There is no pneumothorax or pleural effusion. No evidence for pulmonary edema. Cardiomediastinal silhouette is stable. IMPRESSION: Moderate right mid lung airspace opacity which suggests pneumonia. Radiographic follow-up to ensure resolution is recommended. CT OF THE ABDOMEN AND PELVIS WITHOUT CONTRAST CLINICAL HISTORY: Right flank pain. COMPARISON STUDY: PET/CT March 09, 2013. TECHNIQUE: Axial images of the abdomen and pelvis were obtained without IV contrast. Images were reviewed in the axial, sagittal, and coronal planes. A dose lowering technique was utilized adhering to the principles of ALARA. FINDINGS: Wool Buyer tomogram demonstrates a 5.1 cm right midlung airspace opacity suggestive of pneumonia. Only the inferior most aspect of this airspace opacity is visualized on the axial images. There is fatty infiltration of the liver. Unenhanced images of the spleen, adrenal glands, kidneys and pancreas are unremarkable. No renal, ureteral or bladder calculi are identified. There is no hydronephrosis or hydroureter. There is extensive colonic diverticulosis without evidence for acute diverticulitis. The appendix is normal, located within the upper abdomen. There is no abdominal or pelvic lymphadenopathy. There are no suspicious osseous lesions. IMPRESSION: 1. Moderate right midlung airspace opacity shown on the certification and selection specialist tomogram which suggests pneumonia. Radiographic follow up to ensure resolution is recommended. 2. No urinary calculi or hydronephrosis. 3. Fatty liver. 4. Extensive colonic diverticulosis without evidence for acute diverticulitis. CT ANGIOGRAPHY OF THE CHEST, PULMONARY EMBOLUS PROTOCOL CLINICAL HISTORY: Pain with inspiration. Right flank pain. COMPARISON STUDY: Chest CT February 19, 2017 and chest radiograph performed earlier today. TECHNIQUE: Following IV administration of 93 mL of Optiray-320, helical axial images of the chest were obtained utilizing the pulmonary embolus protocol. Maximal intensity projections and sagittal and coronal reformats were viewed on an independent 3D workstation. IV contrast was administered without complication. A dose lowering technique was utilized adhering to the principles of ALARA. CT DOSE: 385.26 mGy.cm FINDINGS: Several prominent mediastinal lymph nodes are unchanged since CT of February 19, 2017. A 2.4 x 1.9 cm mass-like abnormality within the mid esophagus is similar to exam of February 19, 2017. The heart is mildly enlarged. There is no pericardial effusion. No pulmonary emboli are identified. There is no pneumothorax. There is a trace right pleural effusion. There is dense consolidation within the posterior segment of the right upper lobe without cavitation. Central airways are patent. Bony thorax is unremarkable. There is fatty infiltration of the liver. IMPRESSION: 1. No pulmonary emboli identified. 2. Dense consolidation within the posterior segment of the right upper lobe consistent with pneumonia. No cavitation. Trace right pleural effusion. No central obstructing mass. Radiographic follow up to ensure resolution is recommended. 3. 2.4 x 1.9 cm mass-like abnormality within the mid esophagus which is similar to prior chest CT of February 19, 2017. This could be correlated with previous endoscopic results. Medication Reconciliation New Medications: Amoxicillin & Pot Clavulanate (Amoxicillin/Clavulanate P) 1 Tab Tab 875 MG PO BIDM for 7 Days, #14 TAB Azithromycin (Azithromycin) 250 Mg Tab 250 MG PO QAM for 3 Days, #3 TAB Continued Medications: Amoxicillin (Amoxil) 500 Mg Cap 4 TABS PO UD PRN for DENTAL PROCEDURES Clotrimazole W/ Betamethasone (Clotrimazole/Betamethason) 1 Lot Lot 1 DOSE TOP UD PRN for RASH [id number]-Rj (Nighttime Multi-Symptom C) 1 Cap Cap 2 CAP PO HS PRN for COLD Folic Acid (Folvite) 1 Mg Tab 1 TAB PO QAM Levothyroxine Sodium (Levothyroxine Sodium) 150 Mcg Tab 1 TAB PO QAM Methotrexate (Methotrexate) 2.5 Mg Tab 6 TABS PO WK THURSDAY pm Naproxen (Aleve) 220 Mg Tab 220 MG PO DAILY PRN for Pain Omeprazole (Omeprazole) 20 Mg Tab 1 TAB PO Q2D for 90 Days, TAB 1 Refill Omeprazole (Prilosec) 40 Mg Cap 1 CAP PO Q2D for 30 Days, CAP 3 Refills Sennosides-Docusate Sodium (Stool Softener) 1 Tab Tab 1 TAB PO PRN Simvastatin (Zocor) 20 Mg Tab 20 MG PO HS Discharge Exam Ms. Baron states she feels well today. She remains with a cough, but reports her breathing has improved. She denies fever, chills, chest pain, shortness of breath or dizziness. She does report loose stools, and states that her stool is not well formed, but that she is not having bloody or watery diarrhea. Review of Systems: Constitutional: No fever, No chills, No weakness Respiratory: + cough, + sputum, No wheezing, No shortness of breath, No dyspnea on exertion, No dyspnea at rest Cardiovascular: No chest pain Abdomen: + diarrhea, No pain, No nausea, No vomiting Physical Exam: General Appearance: WD/WN, no apparent distress Respiratory/Chest: chest non-tender, lungs clear, normal breath sounds, no respiratory distress, no accessory muscle use Cardiovascular: regular rate, rhythm, no edema, no gallop, no JVD, no murmur Abdomen / GI: normal bowel sounds, non tender, soft, no organomegaly Extremities: normal inspection, no calf tenderness Hospital Course Ms. Baron was admitted to [facility] for a right sided pneumonia. She initially required 4L of oxygen, but has been weaned off of the oxygen. Right lower lobe pneumonia - blood and sputum cultures negative - rapid flu negative, MRSA negative - initially treated with Unasyn + Azithromycin (ceftriaxone given in ER) - discharged home on 7 days of augmentin and 3 days of azithromycin -> total abx course = 10 days - Speech and language assessed for aspiration risk - she was identified as low risk - keep f/u with oncologist given hx of right sided breast ca, although her previous PET in Aug was normal Rheumatoid arthritis - hold methotrexate this week due to infection Loose Stool - likely related to abx usage - encouraged probiotics - f/u if worsens Resident Physician Supervision Note: I was present with the resident physician during the history and exam. I discussed the case with the resident and agree with the findings and plan as documented in the note. The patient was without complaints this morning; she denied any respiratory difficulty. Still notes being somewhat tired but the profound fatigue she had on admission has improved. She is tolerating oral antibiotics. Agree with appropriate for discharge to home today. I recommend that she is off work for the remainder of the week; she likely will be ready to return to work 1 week from today. She will contact her primary care physician to arrange hospital follow-up. Documented By: Javy Sandoval Total Time Spent: Less than 30 minutes This includes examination of the patient, discharge planning, medication reconciliation, and communication with other providers. Discharge Instructions Please refer to the electronic Patient Visit Report (Discharge Instructions) for additional information. Resident Tracking Resident Involvement: Resident Care Provided Care Provided: Adult Hospital Medicine
[2017-11-30 13:27] VITALS: BP 166/82; PULSE 75; TEMP 36.6; O2SAT 96
== END 2017-11-30 13:56 | disposition home or self-care (01) | DRG 871 ==
LOC: C.EDB 09:57 → C.4E 15:00 → ENRESERV 15:59
PROVIDERS: ADMIT Family Medicine; ATTEND Family Medicine
DX: A41.9 Sepsis, unspecified organism (principal); J18.1 Lobar pneumonia, unspecified organism; J96.01 Acute respiratory failure with hypoxia; E86.0 Dehydration; M06.9 Rheumatoid arthritis, unspecified; E78.5 Hyperlipidemia, unspecified; E03.9 Hypothyroidism, unspecified; K21.9 Gastro-esophageal reflux disease without esophagitis; D13.0 Benign neoplasm of esophagus; Z85.3 Personal history of malignant neoplasm of breast; Z92.3 Personal history of irradiation; Z92.21 Personal history of antineoplastic chemotherapy; Z86.14 Personal history of Methicillin resistant Staphylococcus aureus infection; Z79.899 Other long term (current) drug therapy; Z88.1 Allergy status to other antibiotic agents; Z91.09 Other allergy status, other than to drugs and biological substances

== ENCOUNTER → 2017-12-21 | Outpatient (CLI) | payer BC ==
[~2017-12-21] MED LIST changes: +DEXT1CAP PO; +OMEP20TA PO; +OMEP40CA41 PO
--- NOTE | 2017-12-21 16:08 | DIAGNOSTIC IMAGING REPORT ---
CHEST 2 VIEWS ROUTINE CLINICAL HISTORY: PNEUMONIA COMPARISON STUDY: Echo 22/01/2018 FINDINGS: The cardiac and mediastinal contours are normal. There is no evidence of focal pulmonary consolidation. There is no evidence of failure. No pleural effusions are visualized.[ There is been interval clearing of the previously identified right upper lobe pneumonia. IMPRESSION: No active disease in the chest. Electronically signed by: Crow Velasco M.D. 12/21/2017 4:07 PM Dictated Date/Time: 12/21/2017 4:06 PM
== END | disposition home or self-care (01) ==
LOC: C.RAD1850 15:57
PROVIDERS: ATTEND Internal Medicine
DX: J18.9 Pneumonia, unspecified organism (principal)

== ENCOUNTER → 2018-01-26 | Outpatient (CLI) | payer BC ==
[2018-01-26 13:15] LABS: HEMOGLOBIN A1C 5.6 % (4.5-5.6)
[2018-01-26 13:23] LABS: ALBUMIN 3.8 gm/dl (3.4-5.0); ALKALINE PHOSPHATASE 57 U/L (45-117); ALT/SGPT 28 U/L (12-78); AST/SGOT 33 U/L (15-37); BLOOD UREA NITROGEN 13 mg/dl (7-18); CALCIUM 9.2 mg/dl (8.5-10.1); CARBON DIOXIDE 22 mmol/L (21-32); CHOLESTEROL 133 mg/dl (0-200); GLUCOSE 108 mg/dl (70-99); LDL CHOLESTEROL (DIRECT) 80 mg/dl; POTASSIUM 4.1 mmol/L (3.5-5.1); SODIUM 136 mmol/L (136-145); TOTAL PROTEIN 7.1 gm/dl (6.4-8.2)
== END | disposition home or self-care (01) ==
LOC: C.LABSPEC 12:28
PROVIDERS: ATTEND Internal Medicine
DX: R73.9 Hyperglycemia, unspecified (principal); E03.9 Hypothyroidism, unspecified; E78.5 Hyperlipidemia, unspecified; E66.09 Other obesity due to excess calories; E55.9 Vitamin D deficiency, unspecified; M06.4 Inflammatory polyarthropathy

== ENCOUNTER → 2018-01-27 | Outpatient (CLI) | payer BC ==
[2018-02-01 17:34] LABS: FECAL OCCULT BLOOD #1 NEGATIVE (NEGATIVE); FECAL OCCULT BLOOD #2 NEGATIVE (NEGATIVE); FECAL OCCULT BLOOD #3 NEGATIVE (NEGATIVE)
== END | disposition home or self-care (01) ==
LOC: C.LABSPEC 16:45
PROVIDERS: ATTEND Internal Medicine
DX: Z12.11 Encounter for screening for malignant neoplasm of colon (principal)

== ENCOUNTER → 2018-05-13 | Outpatient (CLI) | payer MEDICARE ==
[2018-05-13 12:17] LABS: HEMATOCRIT 42.6 % (37-47); HEMOGLOBIN 13.7 g/dL (12.0-16.0); MEAN CELL VOLUME 92.6 fL (80-100); MEAN CORPUSCULAR HEMOGLOBIN 29.8 pg (25-34); MEAN CORPUSCULAR HGB CONC 32.2 g/dl (32-36); MEAN PLATELET VOLUME 10.6 fL (7.4-10.4); PLATELET COUNT 289 K/uL (130-400); RED CELL DISTRIBUTION WIDTH CV 14.7 % (11.5-14.5); RED CELL DISTRIBUTION WIDTH SD 49.5 fL (36.4-46.3); WHITE BLOOD COUNT 10.29 K/uL (4.8-10.8)
[2018-05-13 12:33] LABS: ALKALINE PHOSPHATASE 65 U/L (45-117); ALT/SGPT 27 U/L (12-78); AST/SGOT 22 U/L (15-37); TOTAL PROTEIN 7.3 gm/dl (6.4-8.2)
== END | disposition home or self-care (01) ==
LOC: C.LAB1850 09:50
PROVIDERS: ATTEND Physician Assistant
DX: Z79.899 Other long term (current) drug therapy (principal)

== ENCOUNTER 2023-07-27 06:46 | Observation (INO) ==
--- NOTE | 2023-06-29 13:53 | PAT Medication Instructions ---
Medication Instructions Date of Service June 29, 2023 Home Medications Medication Instructions Recorded amoxicillin 500 mg capsule 500 mg PO .COMPLEX PRN Dental 04/21/23 Proced #12 caps Wheeled Walker #1 ea 06/11/23 cholecalciferol (vitamin D3) 50 mcg (2,000 unit) capsule 50 mcg PO QAM naproxen sodium 220 mg capsule (Aleve) 220 mg PO BID PRN omeprazole 20 mg capsule,delayed release 20 mg PO QAM mecobalamin (vitamin B12) 1,000 mcg disintegrating tablet,sublingual 1,000 mcg sublingual QAM calcium carbonate 500 mg calcium (1,250 mg) chewable tablet (Calcium 500) 300 mg PO QAM methotrexate sodium 2.5 mg tablet See Rx Instructions PO ONCE folic acid 400 mcg tablet 0.4 mg PO QAM amoxicillin 500 mg capsule 500 mg PO .COMPLEX PRN amlodipine 5 mg tablet 5 mg PO QAM clotrimazole-betamethasone 1 %-0.05 % topical cream 1 applic topical BID PRN levothyroxine 150 mcg tablet (Synthroid) 150 mcg PO QAM olmesartan 20 mg tablet 20 mg PO QAM simvastatin 20 mg tablet 20 mg PO PM vitamin E 400 unit tablet 180 mg PO QAM STOP 7 days before surgery methotrexate sodium 2.5 mg tablet See Rx Instructions PO ONCE Continue as directed amoxicillin 500 mg capsule 500 mg PO .COMPLEX PRN(if needed) ASK your surgeon for instructions naproxen sodium 220 mg capsule (Aleve) 220 mg PO BID PRN STOP taking 2 weeks before surgery (or as soon as possible if surgery is within 2 weeks) vitamin E 400 unit tablet 180 mg PO QAM STOP taking 24 hours before surgery clotrimazole-betamethasone 1 %-0.05 % topical cream 1 applic topical BID PRN DO NOT take the morning of surgery cholecalciferol (vitamin D3) 50 mcg (2,000 unit) capsule 50 mcg PO QAM mecobalamin (vitamin B12) 1,000 mcg disintegrating tablet,sublingual 1,000 mcg sublingual QAM calcium carbonate 500 mg calcium (1,250 mg) chewable tablet (Calcium 500) 300 mg PO QAM folic acid 400 mcg tablet 0.4 mg PO QAM olmesartan 20 mg tablet 20 mg PO QAM Take morning of surgery With a small sip of water, OTHERWISE NOTHING TO EAT OR DRINK AFTER MIDNIGHT: omeprazole 20 mg capsule,delayed release 20 mg PO QAM amlodipine 5 mg tablet 5 mg PO QAM levothyroxine 150 mcg tablet (Synthroid) 150 mcg PO QAM Take evening before surgery simvastatin 20 mg tablet 20 mg PO PM Other Notes If you have any questions please call us at [phone] or [phone] or [phone] or [phone]
--- NOTE | 2023-07-02 13:19 | Anesthesiology Consultation ---
Date of Service July 02, 2023 Assessment & Plan (1) Encounter for pre-operative examination: - Outpatient joint assessment: Pt currently scheduled for inpatient pathway. If surgeon requests review for outpatient joint pathway, patient is not recommended candidate for outpatient joint program from anesthesia standpoint. - Infectious disease screening: Per assessment on 07/02/23: No known infectious disease contacts or current infectious disease symptoms. No noted Covid positive test result in past 90 days. - RUE limb restriction - Hx congenital duplication cyst of esophagus: * EUS performed 02/20/2017 [facility] noted round intramural (subepithelial) lesion in the upper third of the esophagus. Benign lymphocytes consistent with lymph node and no malignant cells seen on fine-needle aspiration report. * [facility] (03/15/17): "Although by ultrasound criteria this did not appear to have strict features of a duplication or bronchogenic cyst, it also did not seem to have worrisome features, and its texture was slightly heterogeneous.. I did have an opportunity to speak to the radiologist who reviewed the disc from [facility] with the PET scans as well as the most recent [facility] CT chest. He describes that the lesion has been present and detected throughout all of the PET scans and appears to be stable in both size and texture since the earliest PET scan [2009].. This would therefore favor a bronchogenic cyst, and is less likely to represent recurrent disease breast cancer or an inflammatory process. We will watch response to Prilosec; however, if this persists an ENT and pulmonary medicine do not have any additional thoughts, then it may be reasonable at that time to consider repeating the PET scan to b e fully sure that there is no activity in this area." > Stable findings on follow-up imaging 11/2017. Per patient advised no further f/u needed in regards to this. * CTA chest 11/2017: 2.4 x 1.9 cm mass-like abnormality within the mid esophagus "similar" to exam 02/19/2017 per report. * Patient denies ever having or any current dysphagia complaints. Reviewed with Dr. Liu- does not feel that anything further preoperatively from his perspective in regards to this. Chart Review Chart Review: Acceptable Risk for Surgery (pending evaluation DOS) and Patient seen in Pre Admission Testing Teaching & Discussion Pre-Anesthesia Teaching/Discussion Notes: Instructed NPO after midnight before surgery,except medications with 15 cc of water. Medication instructions provided according to the PAT guidelines. History Surgery Operation Date: 07/27/23 12:30 Proposed Procedures p Left Unicompartmental versus - Wang Faith MD s Total Knee Arthroplasty - Wang Faith MD Height/Weight Height: 5 ft 4 in Weight: 83 kg Allergies Allergy/AdvReac Type Severity Reaction Status Date / Time adhesive Allergy Unknown Skin Verified 06/30/23 14:57 irritation metronidazole AdvReac Unknown Metallic Verified 06/30/23 14:57 taste Medications Home Medications Medication Instructions Recorded Confirmed Last Taken cholecalciferol (vitamin D3) 50 50 mcg PO QAM 10/14/21 06/25/23 Unknown mcg (2,000 unit) capsule naproxen sodium 220 mg capsule 220 mg PO BID PRN Pain 10/14/21 06/25/23 Unknown (Aleve) omeprazole 20 mg capsule,delayed 20 mg PO QAM 10/14/21 06/25/23 Unknown release mecobalamin (vitamin B12) 1,000 1,000 mcg sublingual QAM 08/14/22 06/25/23 Unknown mcg disintegrating tablet,sublingual calcium carbonate 500 mg calcium 300 mg PO QAM 12/10/22 06/25/23 Unknown (1,250 mg) chewable tablet (Calcium 500) methotrexate sodium 2.5 mg tablet See Rx Instructions PO ONCE 12/10/22 06/25/23 Unknown folic acid 400 mcg tablet 0.4 mg PO QAM 01/16/23 06/25/23 Unknown amoxicillin 500 mg capsule 500 mg PO .COMPLEX PRN Dental 04/21/23 06/25/23 Unknown Proced #12 caps Wheeled Walker #1 ea 06/11/23 06/11/23 Unknown amlodipine 5 mg tablet 5 mg PO QAM 06/25/23 06/25/23 Unknown clotrimazole-betamethasone 1 1 applic topical BID PRN Rash 06/25/23 06/25/23 Unknown %-0.05 % topical cream levothyroxine 150 mcg tablet 150 mcg PO QAM 06/25/23 06/25/23 Unknown (Synthroid) olmesartan 20 mg tablet 20 mg PO QAM 06/25/23 06/25/23 Unknown simvastatin 20 mg tablet 20 mg PO PM 06/25/23 06/25/23 Unknown vitamin E 400 unit tablet 180 mg PO QAM 06/25/23 06/25/23 Unknown Past Medical History Medical History 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 The ileo-cecal valve is in the RUQ just anterior to the gallbladder. The ascending and transverse colon are straightened and oriented vertically extending from the level of the gallbladder caudally into the pelvis in the anterior midline and then directed cephalad to the splenic flexure region. Small bowel loops instead of the ascending colon are located in the right paracolic gutter. Diarrhea PCP workup 05/2023 noted fecal retention on x-ray with recommendation for miralax at that time. Stool studies unremarkable. Currently significantly improved with more formed stools/less frequency currently, continuing to monitor Diverticulitis Hx, 1+ years ago Dyslipidemia GERD (gastroesophageal reflux disease) H/O anxiety disorder No longer taking meds History of right breast cancer Dx 2009, infiltrating ductal carcinoma Estrogen receptor negative, progesterone receptor negative, HER-2/linda positive S/P right breast lumpectomy and sentinel lymph node biopsy pathologic stage pT1c pN0M0, S/P 6 cycles of TCH, S/P completion of radiation therapy 02/18/2011 received 6120 cGy, S/P 1 year of Herceptin Hypertension Hypothyroidism Left knee DJD MRSA (methicillin resistant Staphylococcus aureus) infection Hx 2006 (left 2nd finger, s/p cyst removal) Neuropathy of right foot Obesity (BMI 30-39.9) Osteopenia Rheumatoid arthritis with inflammatory polyarthropathy Exercise / Class Metabolic Activity III < 4 Walking/Shop/Light housework Past Family History Family History Mother Lung cancer COPD (chronic obstructive pulmonary disease) Tumor Father Alcohol abuse Daughter Anxiety Kidney stones Sister Breast cyst Past Surgical History Surgical History H/O lymph node biopsy right axillary H/O: hysterectomy History of bilateral tubal ligation History of colonoscopy History of esophagogastroduodenoscopy (EGD) History of lumpectomy of left breast right + subsequent surgery to remove more for clear margins S/P excision of ganglion cyst right wrist Status post right partial knee replacement Wayan teeth extracted Past Anesthesia History No Hx of Anesthesia Complications and No Family Hx of Anesthesia Complications History of PONV No Hx of Motion Sickness and History of PONV (with oral surgery) Social History Smoking Status: Never smoker Do You Dip or Chew Tobacco: No Hx Alcohol Use: Yes Alcohol type: wine alcohol intake frequency: a few times a month Hx Substance Use: No substance use type: does not use Review of Systems Patient denies chest pain, shortness of breath, fever, chills, cough, wheezing, palpitations. Physical Exam Vital Signs VITALS BP 124/71 P 60 TEMP 98.3 SP02 97%RA RESP 16 PHYSICAL Full cervical extension range of motion. Full TMJ range of motion. TMD 2.5 finger breaths Mallampati Score 1 Dentition: intact, + caps (#2, 3, 15, 30) Lungs: clear throughout to auscultation Cardiac: regular rate and rhythm, no murmurs noted Spine: normal Carotid arteries: negative bruit Extremities: no LE edema Lab Results Anesthesia Preop Results Results Anesthesia Widget: WBC 9.78 K/ul (4.8-10.8) 07/02/23 Hgb 12.2 g/dl (12.0-16.0) 07/02/23 Hct 37.9 % (37.0-47.0) 07/02/23 Plt 296 K/uL (130-400) 07/02/23 Na 136 mmol/L (136-145) 07/02/23 K 4.9 mmol/L (3.5-5.1) 07/02/23 Cl 101 mmol/L (98-107) 07/02/23 CO2 27 mmol/L (21-32) 07/02/23 BUN 26 mg/dl (6-23) H 07/02/23 Creat 1.07 mg/dl (0.6-1.2) 07/02/23 Glucose Level 104 mg/dl (70-99(Fasting)) H 07/02/23 PT 10.6 Seconds (9.0-12.0) 07/02/23 PTT 26.6 Seconds (21.0-31.0) 07/02/23 INR 1.0 (0.9-1.1) 07/02/23 TSH 0.760 uIu/ml (0.300-4.500) 05/08/23 Blood Type A Positive 07/02/23 Antibody Screen NEGATIVE 07/02/23 Testing Electrocardiogram Date: 07/02/23 SB at 58bpm. RAD. ST elevation, consider early repolarization, pericarditis, or injury. No significant change compared to 11/28/2017 per semiconductor packages leak tester comparison. No chest pain or cardiopulmonary limiting complaints at PAT visit 07/02/23* Cervical Spine Date: 07/02/23 Other Testing Chest + Abdomen x-ray Date: 05/19/23 FINDINGS: No pneumothorax. No pleural effusions. The heart is normal in size. Small nodular density at the right lateral lung base which may represent a nipple shadow. This is not identified on the additional views and is therefore unlikely to be located within the lung. Otherwise, lungs are clear. There are calcifications within the aortic knob. No pneumoperitoneum. No pneumatosis. No renal or ureteral calculi. No dilated loops of bowel to suggest an obstruction. Calcifications in the deep pelvis consistent with phleboliths. [id number] fecal retention is noted. IMPRESSION:No acute cardiopulmonary process. No evidence for bowel obstruction. *X-ray ordered and findings reviewed by [place] PCP* Cervical spine x-ray Date: 07/02/23 FINDINGS: Normal predental interval. Moderate degeneration at C1-C2. Mild multilevel intervertebral disc space narrowing and spondylotic spurring with moderate facet arthrosis. No acute fracture, subluxation or osseous erosion identified. Lung apices are clear. No prevertebral soft tissue swelling. IMPRESSION: No acute fracture, subluxation or osseous erosion.
--- NOTE | 2023-07-24 13:37 | History & Physical Report ---
Date of Service July 24, 2023 Assessment & Plan (1) Left knee DJD: 9-year-old female hide 10 years out from a right partial knee replacement with persistent progressive left knee medial compartment arthritis previous failed conservative treatment and would like proceed with partial knee replacement if possible. Plan: We will plan taken to the operating to a left partial knee replacement. If we get in there is too bad we will do a full knee replacement but the risks Mente about partial versus full knee replacement explained the patient include but not limited to DVT PE infection neurological and vascular bleeding palm pain limb range of motion this is fairly her symptoms dislocation exceptor. Patient understands and desires to proceed. Informed consent was obtained. As far as DVT prophylaxis we will plan on Thiede teds SCDs and aspirin. She plans to stay in the hospital overnight and discharged to home with home health. History of Present Illness Chief Complaint: . Persistent left medial knee pain and discomfort. Primary Care Provider: Poppy Key MD . Patient is a 73-year-old female 1 removed from previous right partial knee replacement done about 10 years ago. The right knee is done well. In the past several years she developed increased pain discomfort in her left knee. The pain is all medial. Been to extensive conservative treatment occluding oral medicines as well as injections. Become less successful. She would now like to proceed with partial knee replacement. Allergies Allergy/AdvReac Type Severity Reaction Status Date / Time adhesive Allergy Unknown Skin Verified 06/30/23 14:57 irritation metronidazole AdvReac Unknown Metallic Verified 06/30/23 14:57 taste Home Medications Medication Instructions Recorded Confirmed Type cholecalciferol (vitamin D3) 50 50 mcg PO QAM 10/14/21 06/25/23 History mcg (2,000 unit) capsule naproxen sodium 220 mg capsule 220 mg PO BID PRN Pain 10/14/21 06/25/23 History (Aleve) omeprazole 20 mg capsule,delayed 20 mg PO QAM 10/14/21 06/25/23 History release mecobalamin (vitamin B12) 1,000 1,000 mcg sublingual QAM 08/14/22 06/25/23 History mcg disintegrating tablet,sublingual calcium carbonate 500 mg calcium 300 mg PO QAM 12/10/22 06/25/23 History (1,250 mg) chewable tablet (Calcium 500) methotrexate sodium 2.5 mg tablet See Rx Instructions PO ONCE 12/10/22 06/25/23 History folic acid 400 mcg tablet 0.4 mg PO QAM 01/16/23 06/25/23 History amoxicillin 500 mg capsule 500 mg PO .COMPLEX PRN Dental 04/21/23 06/25/23 Rx Proced #12 caps Wheeled Walker #1 ea 06/11/23 06/11/23 Rx amlodipine 5 mg tablet 5 mg PO QAM 06/25/23 06/25/23 History levothyroxine 150 mcg tablet 150 mcg PO QAM 06/25/23 06/25/23 History (Synthroid) olmesartan 20 mg tablet 20 mg PO QAM 06/25/23 06/25/23 History simvastatin 20 mg tablet 20 mg PO PM 06/25/23 06/25/23 History vitamin E 400 unit tablet 180 mg PO QAM 06/25/23 06/25/23 History clotrimazole-betamethasone 1 1 applic topical BID PRN Rash #15 07/22/23 Rx %-0.05 % topical cream grams Past Med/Surg History Medical History 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 The ileo-cecal valve is in the RUQ just anterior to the gallbladder. The ascending and transverse colon are straightened and oriented vertically extending from the level of the gallbladder caudally into the pelvis in the anterior midline and then directed cephalad to the splenic flexure region. Small bowel loops instead of the ascending colon are located in the right paracolic gutter. Diarrhea PCP workup 05/2023 noted fecal retention on x-ray with recommendation for miralax at that time. Stool studies unremarkable. Currently significantly improved with more formed stools/less frequency currently, continuing to monitor Diverticulitis Hx, 1+ years ago Dyslipidemia GERD (gastroesophageal reflux disease) H/O anxiety disorder No longer taking meds History of right breast cancer Dx 2009, infiltrating ductal carcinoma Estrogen receptor negative, progesterone receptor negative, HER-2/linda positive S/P right breast lumpectomy and sentinel lymph node biopsy pathologic stage pT1c pN0M0, S/P 6 cycles of TCH, S/P completion of radiation therapy 02/18/2011 received 6120 cGy, S/P 1 year of Herceptin Hypertension Hypothyroidism Left knee DJD MRSA (methicillin resistant Staphylococcus aureus) infection Hx 2006 (left 2nd finger, s/p cyst removal) Neuropathy of right foot Obesity (BMI 30-39.9) Osteopenia Rheumatoid arthritis with inflammatory polyarthropathy Surgical History H/O lymph node biopsy right axillary H/O: hysterectomy History of bilateral tubal ligation History of colonoscopy History of esophagogastroduodenoscopy (EGD) History of lumpectomy of left breast right + subsequent surgery to remove more for clear margins S/P excision of ganglion cyst right wrist Status post right partial knee replacement [place] teeth extracted Family History Mother Lung cancer COPD (chronic obstructive pulmonary disease) Tumor Father Alcohol abuse Daughter Anxiety Kidney stones Sister Breast cyst Social History Smoking Status: Never smoker Second Hand Exposure: No; Do You Dip or Chew Tobacco: No; Tobacco Cessation Education Requested by Patient: No Hx Alcohol Use: Yes Alcohol type: wine Hx Substance Use: No Preferred Language: B[place] Communication Ability: Effective Mimeograph Operator Required: No Beliefs That Will Affect Care: None Current Living Situation: Spouse Other Information That Helps Us Care for You: No Feels Safe at Home: Yes Safety Concerns: Feels Safe At This Time Assistive Devices: Glasses Assistive Devices Comment: 4 crowns to teeth Review of Systems All systems reviewed & are unremarkable except as noted in HPI & below. Physical Exam . Physical examination reveals a pleasant middle-age female. Looks in good health. Examination left knee reveals patient ambulates independently. She is got slight varus alignment to her knee. She tender over the medial joint line. Small knee effusion. Bony Perjury Medially. Range Of Motion Is near Full Extension to 125 Degrees of Flexion but There Is No Instability. Negative Pivot Shift. No Pain with Hip Motion. Constitutional WD/WN, vitals as above Respiratory normal respiratory effort, lungs clear to auscultation Cardiovascular RRR, no murmur, no edema Gastrointestinal (Abdomen) normal bowel sounds, soft, nontender, no hepatosplenomegaly Results & Data Results & Data Laboratory Results . Diagnostic Findings . X-rays of the left knee were reviewed. Shows advanced left knee medial compartment arthritis. She got complete loss of medial joint space. The rest the knee looks pretty good. PG Care Time/CCT Total # of Minutes Spent Total Time Spent with Patient: Total time spent is greater than 50% in coordination of care (as documented) at patient's floor/unit and/or counseling patient: Coding Level of Care Code None Diagnoses Left knee DJD M17.12
[~2023-07-27 06:46] MED LIST changes: +ACETAMINOPHEN 500 MG TAB PO SCH; -AMOX500C3 PO; +BUPIVACAINE LIPOSOME/PF 266 MG, BUPIVACAINE/EPINEPHRINE 50 ML, SODIUM CHLORIDE 0.9% PF ... INFIL SCH; -CLOTLOT2 TOP; +CeleBREX 200 MG CAP PO SCH; -DEXT1CAP PO; +FAMOTIDINE 20 MG TAB PO SCH; -FOLI1TAB8 PO; -LEVO150T9 PO; +LR 500ML BOLUS, THEN 15ML/HR IV SCH; +LR 60ML/HR IV SCH; -METH2.5T PO; +METOCLOPRAMIDE HCL 10 MG TABLET PO SCH; -NAPR1TAB9 PO; -OMEP20TA PO; -OMEP40CA41 PO; +ROPIVACAINE 0.5% 5 MG/ML 30 ML VIAL ONE; -SENNTAB23 PO; -SIMV20TA2 PO; +TRANEXAMIC ACID 1,000 MG **IV Intra-op IV SCH; +ceFAZolin 2000MG 2,000 MG/15 ML SYR IV SCH; +dexAMETHasone 4 MG TAB PO SCH
--- NOTE | 2023-07-27 06:48 | History & Physical Bridge Note ---
Date of Service July 27, 2023 History & Physical Bridge Note I have examined the patient, reviewed the History & Physical and in the interval since the performance of the History & Physical I have noted the following changes of clinical significance: no changes noted
[2023-07-27] MEDS ORDERED: MIDAZOLAM HCL 1 MG/ML 2ML VIAL ONE (07:29)
[2023-07-27] MEDS ORDERED: PROPOFOL IV EMULSION 10 MG/ML 20 ML VIAL IV ONE ×2 (07:29→09:39)
[2023-07-27] MEDS ORDERED: fentaNYL citrate PF 100 MCG/2 ML VIAL ONE (08:27)
[2023-07-27] MEDS ORDERED: ePHEDrine sulfate 50 MG/ML AMP IV PRN (08:28)
[2023-07-27] MEDS ORDERED: ATROPINE SULFATE 0.1 MG/ML 10ML SYR IV PRN (08:28)
[2023-07-27] MEDS ORDERED: HYDROmorphone INJ 1 MG/ML SYRINGE IV PRN (08:28)
[2023-07-27] MEDS ORDERED: KETOROLAC 30 MG/ML VIAL IV PRN (08:28)
[2023-07-27] MEDS ORDERED: ONDANSETRON INJ 2 MG/ML 2 ML VIAL IV PRN ×2 (08:28→12:09)
[2023-07-27] MEDS ORDERED: BUPIVACAINE/EPINEPHRINE 0.25% 1:200,000 30 ML VIAL ONE (08:32)
[2023-07-27] MEDS ORDERED: SODIUM CHLORIDE 0.9% PF 50 ML VIAL ONE (08:32)
[2023-07-27] MEDS ORDERED: BUPIVACAINE LIPOSOME 1.3% 266 MG/20 ML VIAL ONE (08:32)
[2023-07-27] MEDS ORDERED: GLYCOPYRROLATE 0.2 MG/ML VIAL ONE (09:10)
--- NOTE | 2023-07-27 10:55 | Operative Report ---
PG Post Operative Report Pre & Post Diagnosis Operation Date: 07/27/23 08:50 Pre-Op Diagnosis: Left Knee Medial Compartment Degenerative Joint Disease Post-Op Diagnosis: Left Knee Medial Compartment Degenerative Joint Disease I identified the patient and participated in the time-out.: Yes Procedure Operation Date: 07/27/23 08:50 Actual Procedures p Left Unicompartmental Knee Arthroplasty(Left) - Wang Faith MD Surgeon Wang Faith MD Ocean Fishing Guide Torres Myles PA-C Estimated Blood Loss 25 Findings Consistent with Post-Op Diagnosis Operative findings were advanced left knee medial compartment DJD. She had pretty extensive full-thickness cartilage loss of the entire medial femoral condyle medial tibial plateau. The rest of the joint is pretty well-preserved. She had some mild diffuse osteopenia. The ACL PCL were intact. Specimens Left knee sent for pathology Anesthesia Type Spinal MAC Complications none Disposition Accompanied Patient To Recovery: No Indications Patient 73-year-old fairly active female with a long history of knee problems. She had a right partial knee replacement about 10 years ago and done well with this. Over the past several years she developed increased pain discomfort in her left knee. Her symptoms localized to the medial side of the knee. She failed conservative measures. X-rays show advanced medial compartment arthritis. The remainder of her knee looks to the good radiographically. She elected to have left partial knee replacement. Description of Procedure Operative implants consist of: 1. Biomet Isabela size small femoral component. 2. Biomet Isabela left medial size 8 tibial tray. 3. 3 mm mobile-bearing polyethylene insert. The patient was taken the operating, identified, placed on the operating table supine position. All contractors were properly padded. IV antibiotics were by anesthesia team. Spinal anesthetic and adductor canal block had been provided in the holding area. Garvin catheter was placed in sterile fashion. Left atrium was then placed in left lower extremity then prepped draped in usual sterile fashion. The left leg was elevated exsanguinated with use of an Esmarch and the turn was placed at 3 mmHg. An anterior posterior left knee was then performed to longitudinal incision over the medial aspect of the patella and patella tendon. Sharp dissection scalp through subcutaneous tissues down to the extensor mechanism. A medial parapatellar arthrotomy incision was made from the superior pole of the patella to just medial to the tibial tubercle. Some slight rodriguez bperiosteal dissection was carried out medially. The fat pad was removed. I then examined the knee. The ACL PCL were intact and the lateral and patellofemoral compartments look pretty well-preserved. We elected proceed with a partial knee replacement. The femur was then sized to a size small. The small spoon was placed in the external tibial alignment jig was then placed in the interface the tibia and attached to the spoon with a 4G clamp. The tibial cutting guide was then secured to the tibia. The proximal tibial cut was made. The tibia sized to a size A. Attention drawn the femur. The distal femur was entered with use of a sharp drill. The IM bran was placed. The small femoral template was then placed set at a setting of 4. It was attached to the IM bran. The holes were drilled for the femoral component. Cutting guide was then placed for the posterior aspect the femur. The posterior femoral cut was made. The 0 spigot was then used to milled the distal femur. We then trialed the knee and the 3 feeler gauge fit appropriate in flexion and I could not even get the 1 in extension. Therefore we placed a 3 spigot and milled the distal femur. Try that again and the 3 insert fit appropriate in flexion extension. We elect place his implants. All trial implants were removed. The posterior osteophyte cutting guide was placed. The posterior osteophyte was removed. The anterior femur was milled. The cement drill was used to create some holes in the femur for cement interdigitation. The tibial tray was then pinned in place. The toothbrush blade was used to create the keel for the tibial tray. We then trialed the knee 1 more time and the 3 insert fit appropriately. Attention drawn to placing permanent components. All trial components were removed. The wound was irrigated extensively. A single batch [place] G cement was mixed. A left medial size 8 tibial tray was then cemented in place followed by a small femoral component. All extraneous cement was removed. We then brought to the about 30 degrees. Attention and placed a 3. Once the cement hardened final cement check was performed. All extraneous cement was removed. We trialed the knee 1 more time and the 3 insert fit appropriately. We elect to place the insert. The wound was irrigated. A permanent mobile-bearing 3 mm insert was placed. Attention drawn toward closing. The wounds irrigated cosigns pulsatile lavage solution. I did inject locally with 100 cc of combination of 20 cc Exparel, 30 cc normal saline, 50 cc of quarter percent Marcaine with epinephrine. The tourniquet was then let down for current time 63 minutes. Hemostasis reduced electrocautery. The wounds once again irrigated. The extensor mechanism closed with #1 Vicryl suture in a [id number] fashion. Subcutaneous tissues then closed with 2 Dexon suture in buried interrupted fashion skin was closed skin briseyda. Leg was then cleaned and dried and sterile dressing was Xeroform, 4 fours, sterile cast padding, Jerry bandage were applied. Patient then transferred to the recovery in stable condition. Patient tolerated procedure well and there were no complications. Torres Myles, my physician medical billing assistant, was present for the entire procedure. His assistance was essential and required for appropriate patient positioning, prepping and draping, surgical exposure, performing the technical details of the operation, placement the implants, closure of the wound, and placement of the sterile bandage. I attest to the content of the Intraoperative Record and any orders documented therein. Any exceptions are noted below.
--- NOTE | 2023-07-27 12:04 | Anesthesiology Progress Note ---
Date of Service July 27, 2023 Anesthesia Post Procedure Vital Signs Vital Signs: Temp Pulse Resp BP Pulse Ox O2 Del Method O2 Flow Rate 07/27/23 11:50 36.8 C 76 15 122/51 L 96 Nasal Cannula 2 07/27/23 11:40 76 14 114/56 L 99 Nasal Cannula 2 07/27/23 11:30 59 L 18 124/46 L 99 Nasal Cannula 2 07/27/23 11:00 68 10 L 128/60 99 Room Air 07/27/23 11:20 57 L 23 121/42 L 97 Nasal Cannula 2 07/27/23 11:10 63 16 129/47 L 94 Nasal Cannula 2 07/27/23 10:50 74 15 134/56 L 96 Room Air 07/27/23 10:44 36.6 C 75 18 132/51 L 96 Room Air 07/27/23 07:12 36.6 C 70 18 166/68 H 97 Room Air Pain Intensity Left Knee: Pain Intensity: 2 Transfer of Care Handoff Completed per policy Notes Mental Status: alert / awake / arousable Patient Amnestic to Procedure: Yes Nausea / Vomiting: adequately controlled Pain: adequately controlled Airway Patency, RR, SpO2: stable & adequate BP & HR: stable & adequate Hydration State: stable & adequate Neuraxial Anesthesia: was administered and sensory block is resolving Anesthetic Complications: no major complications apparent
[2023-07-27] MEDS ORDERED: bisacodyL 10 MG SUPP PR PRN (12:09)
[2023-07-27] MEDS ORDERED: NALOXONE HCL 0.4 MG/1 ML VIAL/CARP IV PRN (12:09)
[2023-07-27] MEDS ORDERED: METOCLOPRAMIDE HCL INJ 5 MG/ML 2 ML VIAL IV PRN (12:09)
[2023-07-27] MEDS ORDERED: MAGNESIUM HYDROXIDE SUSP 30 ML UDC PO PRN (12:09)
[2023-07-27] MEDS ORDERED: ALUMINUM/MAGNESIUM SUSP 30 ML UDC PO PRN (12:09)
[2023-07-27] MEDS ORDERED: HYDROmorphone INJ 0.5 MG/0.5 ML SYR IV PRN (12:09)
[2023-07-27] MEDS: SODIUM CHLORIDE 0.9% 1,000 ML IV SCH ×2 (12:37→23:40)
[2023-07-27] MEDS: KETOROLAC TROMETHAMINE 15 MG/ML VIAL IV SCH ×2 (13:28→19:58)
[2023-07-27] MEDS: ACETAMINOPHEN 500 MG TAB PO SCH ×2 (13:28→21:25)
--- NOTE | 2023-07-27 13:34 | XRay Report ---
XR knee LT 1 or 2V routine CLINICAL HISTORY: Postoperative evaluation. COMPARISON: Left knee radiographs October 15, 2012 and April 16, 2023. FINDINGS: Alignment of the left knee medial compartment arthroplasty is anatomic. There is no peripr osthetic fracture or unexpected radiopaque foreign body. There are skin briseyda. IMPRESSION: Expected findings following medial compartment arthroplasty of the left knee. ACT 112: Negative or not required by law. Electronically signed by: Paul Sinha M.D. 07/27/2023 1:33 PM
[2023-07-27] MEDS: ASCORBIC ACID 500 MG TAB PO SCH (16:59)
[2023-07-27] MEDS: ceFAZolin 2000MG 2,000 MG/15 ML SYR IV SCH (16:59)
[2023-07-27] MEDS ORDERED: TRANEXAMIC ACID / 0.7% NACL 1,000 MG/100 ML BAG IV SCH (17:00)
[2023-07-27] MEDS: traMADol HCL 50 MG TABLET PO PRN (18:06)
[2023-07-27] MEDS ORDERED: SENNA 8.6 MG TAB PO SCH ×2 (21:00)
[2023-07-27] MEDS ORDERED: SIMVASTATIN 20 MG TAB PO SCH (21:00)
[2023-07-27] MEDS: ASPIRIN 81 MG ECTAB PO SCH (21:25)
[2023-07-27] MEDS: DOCUSATE SODIUM 100 MG CAP PO SCH (21:25)
[2023-07-28] MEDS: ceFAZolin 2000MG 2,000 MG/15 ML SYR IV SCH (00:23)
[2023-07-28] MEDS: traMADol HCL 50 MG TABLET PO PRN ×2 (00:23→10:55)
[2023-07-28] MEDS: KETOROLAC TROMETHAMINE 15 MG/ML VIAL IV SCH ×2 (00:23→06:04)
[2023-07-28] MEDS ORDERED: LEVOTHYROXINE SODIUM 150 MCG TABLET PO SCH (06:30)
[2023-07-28 07:08] LABS: Hematocrit (blood only) 34.3 % (37.0-47.0); Hemoglobin 11.2 g/dl (12.0-16.0); Mean Corpuscular Hemoglobin 29.6 pg (25.0-34.0); Mean Corpuscular Hgb Conc 32.7 g/dL (32.0-36.0); Mean Corpuscular Volume 90.7 fL (80.0-100.0); Mean Platelet Volume 9.6 fL (9.4-12.4); Platelet Count 240 K/uL (130-400); RDW Coefficient of Variation 13.6 % (11.5-14.5); RDW Standard Deviation 44.5 fL (36.4-46.3); Red Blood Count 3.78 M/uL (4.20-5.40); White Blood Count 17.03 K/ul (4.8-10.8)
[2023-07-28 07:25] LABS: Calcium 9.3 mg/dl (8.6-10.3); Creatinine Clr Calc Pharmacy 47.3 ml/min; Est GFR (African American) 56.6 ml/min; Est GFR (Non-African American) 48.9 ml/min; Potassium 4.5 mmol/L (3.5-5.1)
[2023-07-28] MEDS ORDERED: dexAMETHasone 10 MG in SYRINGE 0 ML IV SCH (08:00)
[2023-07-28] MEDS: ASPIRIN 81 MG ECTAB PO SCH (08:12)
[2023-07-28] MEDS: ACETAMINOPHEN 500 MG TAB PO SCH (08:12)
[2023-07-28] MEDS: ASCORBIC ACID 500 MG TAB PO SCH (08:12)
[2023-07-28] MEDS: DOCUSATE SODIUM 100 MG CAP PO SCH (08:13)
[2023-07-28] MEDS ORDERED: PANTOprazole 40 MG TAB PO SCH (09:00)
[2023-07-28] MEDS ORDERED: CYANOCOBALAMIN (B-12) 500 MCG TABLET PO SCH (09:00)
[2023-07-28] MEDS ORDERED: OLMESARTAN MEDOXOMIL 20 MG TAB PO SCH (09:00)
[2023-07-28] MEDS ORDERED: FOLIC ACID 400 MCG TAB PO SCH (09:00)
[2023-07-28] MEDS ORDERED: TOCOPHERYL, DL-ALPHA 400 UNITS 180 MG CAP PO SCH (09:00)
[2023-07-28] MEDS ORDERED: MULTIVITAMIN TAB PO SCH (09:00)
[2023-07-28] MEDS ORDERED: CALCIUM CARBONATE 1250MG TAB PO SCH (09:00)
[2023-07-28] MEDS ORDERED: amLODIPine BESYLATE 5 MG TAB PO SCH (09:00)
[2023-07-28] MEDS ORDERED: CHOLECALCIFEROL 1,000 UNITS 25 MCG TAB PO SCH (09:00)
--- NOTE | 2023-07-28 13:06 | Surgery Progress Note ---
Date of Service July 28, 2023 Assessment & Plan (1) Status post left partial knee replacement: Plan: 73-year-old female postop day 1 from left partial knee replacement doing well. Pain is controlled. She is neurologically intact. Medically stable. Hoping to go home. Hoping to go home. Plan: 1. DVT prophylaxis including thigh-high teds, SCDs, aspirin twice a day. 2. PT OT. Weight-bear as tolerated left total knee protocol. 3. Pain control doing okay with current pain regimen. 4. Disposition plan to discharge home with some home health today. Admission and Anticipated Discharge Date Admission Date: July 27, 2023 Subjective 73-year-old female postop day 1 from a left partial knee replacement. She has she is doing quite well. Had a good night. Pain is controlled. No chest pain or shortness of breath. Not feeling dizzy or lightheaded. At therapies been going well. Hoping to go home. Physical Exam Physical Exam: Physical examination was a pleasant middle-age female. She was ambulate in the hallway when I visited this morning. She was walking quite well. The dressing is clean dry and intact. She can dorsiflex and plantarflex her foot appropriately. She is got a good straight leg raise. Respiratory: normal respiratory effort, lungs clear to auscultation Cardiovascular: RRR, no murmur, no edema Gastrointestinal (Abdomen): normal bowel sounds, soft, nontender, no hepatosplenomegaly Results & Data Vital Signs (Past 12 Hours) Vital Signs Temp Pulse Pulse Pulse Resp BP BP 07/28/23 11:35 37.0 C 63 63 62 16 95/60 L 142/64 H 07/28/23 07:18 37.0 C 62 16 95/60 L 07/28/23 03:10 37.0 C 63 18 145/72 H Pulse Ox O2 Del Method 07/28/23 11:35 95 07/28/23 07:18 95 Room Air 07/28/23 03:10 96 Room Air Laboratory Results Hemoglobin is 11.2. Hematocrit is 34.3. Electrolytes are stable. PG Care Time/CCT Total # of Minutes Spent Total Time Spent with Patient: Total time spent is greater than 50% in coordination of care (as documented) at patient's floor/unit and/or counseling patient: Coding Level of Care Code 87738 Post Operative Follow-Up Diagnoses Status post left partial knee replacement Z96.658
--- NOTE | 2023-07-30 08:22 | Discharge Summary ---
Date of Service July 30, 2023 Discharge Data Procedures Performed Operation Date: 07/27/23 08:50 Actual Procedures p Left Unicompartmental Knee Arthroplasty(Left) - Wang Faith MD Hospital Course (1) Status post left partial knee replacement: This is a 73 year old patient admitted on 07/27/23 and underwent partial knee replacement. She tolerated the procedure well and there were no complications. Transferred to the PACU post op and later to the orthopedic floor for further care. She was given ancef for antibiotic prophylaxis. She was also given SARAI stockings, SCDs, and aspirin for DVT prophylaxis. Hemoglobin, hematocrit, and vital signs were monitored during her hospital stay and remained stable. Did not require any blood transfusions. There were no complications during her hospital stay. By post op day #1 the patient was tolerating a regular diet, pain was reasonably controlled with oral pain medicine, and she was participating in physical therapy. On post op day #1 the patient was discharged home and set up with home health care. She was given printed discharge instructions including prescriptions for extra strength tylenol, aspirin, cefadroxil, ketorolac, zofran, tramadol, and senokot. Continue physical therapy, weight bearing as tolerated. Continue SARAI stockings. Follow up approximately 2 weeks post op or sooner if there are problems or concerns. Coding Level of Care Code None Diagnoses Status post left partial knee replacement Z96.652
== END 2023-07-28 11:37 | disposition home health service (06) ==
LOC: 3E 06:46 → ASU 06:46
DX: Z85.3 Personal history of malignant neoplasm of breast; M06.9 Rheumatoid arthritis, unspecified; Z79.890 Hormone replacement therapy; I10 Essential (primary) hypertension; Z79.899 Other long term (current) drug therapy; Z96.651 Presence of right artificial knee joint; Z79.82 Long term (current) use of aspirin; Z91.048 Other nonmedicinal substance allergy status; M17.12 Unilateral primary osteoarthritis, left knee